=== PATIENT | female | born 1935 | race Caucasian/White ===

== ENCOUNTER 2017-01-27 11:59 | Inpatient (IN) | payer MEDICARE, OTHER ==
[~2017-01-27] VITALS: Ht 157.5 cm; Wt 75.0 kg
[2017-01-27] VITALS (10 sets, daily range): BP systolic 178–225; BP diastolic 86–116; PULSE 71–112; RESP 14–16; O2SAT 92–99
[~2017-01-27 11:59] MED LIST: ALBU18HF INH; ASPI-973 PO; AZEL205. NS; CITA20TA11 PO; FLUT1DIS5 IH; FLUT50DI IH; FLUT9.9S NS; HYDR25TA4 PO; LATA2.5D6 OP; LISI-567 PO; MOME17SP NS; OMEP20CA11 PO; PRED5TAB55 PO
[2017-01-27] MEDS: Ondansetron 2 mg/mL 2 mL Inj IVPUSH PRN ×2 (12:52→19:21)
[2017-01-27] MEDS: HYDROmorphone 0.5 mg/0.5 mL iSecure Syringe IVPUSH PRN ×4 (12:56→14:41)
[2017-01-27 12:58] LABS: BASOPHILS % (AUTO) 0.1 % (0-3); EOSINOPHILS % (AUTO) 0.5 % (0-5); MONOCYTES % (AUTO) 8.4 % (4-12); Mean Corpuscular Hemoglobin 29.9 pg (27.0-35.0); Mean Corpuscular Volume 91.8 fL (81-100); NEUTROPHILS % (AUTO) 68.9 % (40-74); Platelet Count 179 bil/L (150-400)
[2017-01-27 13:25] LABS: Magnesium 1.7 mg/dL (1.6-2.6)
--- NOTE | 2017-01-27 13:50 | ED.REPORT ---
HPI-Headache Date of Service Jan 27, 2017 ED Provider: Deepa Olmedo MD The pt is a 81 y/o female w/ a hx of osteoporosis, HTN, glaucoma, COPD, asthma , and peripheral neuropathy presenting to the ED complaining of a headache onset 4 days ago. She describes the headache being localized to the frontal region, severe, that gets worse during the day and she has used topical cannabis cream which provided mild relief. She also reports neck and shoulder pain, as well as pain above her teeth. Denies vision changes or focal weakness. The pot reports taking prednisone because she thought it was a sinus infection originally. Nursing Notes Stated Complaint: HEADACHE Chief Complaint: Headache Nursing Notes Reviewed: Yes Allergies: Coded Allergies: No Known Allergies (Verified , 01/01/16) Scheduled Aspirin (Aspirin) 81 Mg Tablet 81 MG PO DAILY Azelastine HCl (Astepro) 205.5 Mcg/0.137 Ml [place].pump 205.5 MCG NS BID Citalopram (Citalopram) 20 Mg Tablet 0.5 TAB PO DAILY Fluticasone Propionate (Flonase Allergy Relief) 50 Mcg/Actuation [place].susp 9.9 ML NS DAILY Fluticasone Propionate (Flovent Diskus) 50 Mcg Disk.w.dev 1 PUFF IH BID Fluticasone/Salmeterol (Advair 500-50 Diskus) 1 Each Disk.w.dev 2 PUFF IH BID Hydrochlorothiazide (Hydrochlorothiazide) 25 Mg Tablet 25 MG PO DAILY Latanoprost (Latanoprost) 2.5 Ml Drops 1 GTT OP HS Lisinopril (Lisinopril) 20 Mg Tablet 20 MG PO DAILY Mometasone Furoate (Nasonex) 17 Gm [place].pump 1 SPRAY NS DAILY Omeprazole (Omeprazole) 20 Mg Capsule.dr 20 MG PO DAILY Scheduled PRN Albuterol Sulfate (Ventolin HFA Inhaler) 200 Puff/18 Gm Inhaler 2 PUFF INH Q4- 6H PRN PRN For Wheezing Prednisolone (Millipred) 5 Mg Tablet 5 MG PO PRN asthma General Time Seen by MD: 12:12 Chief Complaint Headache Hx Obtained From: Patient Arrived By: Walk-in Sudden in Onset?: Yes Onset Occurred: 4 days ago Symptom Duration: Since onset Recent Healthcare: No recent hospitalization, Recent doctor visit Past Medical History Past Medical History chronic back pain sciatica Osteoporosis Glaucoma COPD Peripheral neuropathy Reports: Asthma, Hypertension Past Surgical History right knee replacement tonsillectomy gallbladder partial hysterectomy Smoking History Former Smoker Social History Alcohol Use: "Social" Drug Use: Denies drug use Other Social History: Good social support, Ambulatory Status Independent Review of Systems Pain "above teeth"; Denies vision changes; Musculoskeletal: Reports: Neck pain (that radiates to shoulders ) Neurologic: Reports: Headache, Denies: Focal weakness Complete sys rev & neg: except as marked. Physical Exam Initial Vital Signs Vital Signs (First) Date Time Temp Pulse Resp B/P Pulse Ox O2 Delivery O2 Flow Rate FiO2 01/27/17 12:03 37.2 101 16 225/116 99 Room Air Initial VS: Reviewed ENT: Mucous membranes moist, Conjunctiva normal, No scleral icterus Respiratory: Breath sounds normal, Clear to auscultation, No respiratory distress Cardiovascular: Regular rate & rhythm, Heart sounds normal, Intact distal pulses Extremities: Vascular intact, Neuro intact, No swelling, No tenderness Skin: Warm, Dry, No cyanosis Psychiatric: Mood/affect normal, Behavior normal, Normal thought content General/Constitutional: Awake, Alert Head / Eyes: Normocephalic, PERRL, EOMI no temporal artery pain noted Frontal and maxillary sinus tenderness Neck: Atraumatic, Supple, Full range of motion No cervical adenopathy Neurologic: Oriented X3, Speech NL Interpretation & Diagnostics Lab Results Interpretation Result Diagram: 01/27/17 1240 01/27/17 1240 Test 01/27/17 12:40 White Blood Count 8.2th/mm3 (3.8-10.1) Red Blood Count 4.85mil/mm3 (3.90-5.20) Hemoglobin 14.5g/dL (12.0-15.6) Hematocrit 44.5% (35.0-46.0) Mean Corpuscular Volume 91.8fL (81-100) Mean Corpuscular Hemoglobin 29.9pg (27.0-35.0) Mean Corpuscular Hemoglobin Concent 32.6% (32.0-37.0) Red Cell Distribution Width 14.9% (12.3-15.4) Platelet Count 179bil/L (150-400) Neutrophils (%) (Auto) 68.9% (40-74) Lymphocytes (%) (Auto) 21.9% (14-46) Monocytes (%) (Auto) 8.4% (4-12) Eosinophils (%) (Auto) 0.5% (0-5) Basophils (%) (Auto) 0.1% (0-3) Sodium Level 141mEq/L (134-144) Potassium Level 4.3mEq/L (3.5-5.2) Chloride Level 102mEq/L (97-108) Carbon Dioxide Level 23mmol/L (18-29) Blood Urea Nitrogen 18mg/dL (8-27) Creatinine 0.59mg/dL (0.57-1.00) Estimat Glomerular Filtration Rate 141mL/min (>59) Glucose Level 135mg/dL (60-99) Calcium Level 10.4mg/dL (8.5-10.1) Magnesium Level 1.7mg/dL (1.6-2.6) Total Bilirubin 2.3mg/dL (0.0-1.2) Aspartate Amino Transf (AST/SGOT) 21U/L (0-50) Alanine Aminotransferase (ALT/SGPT) 13U/L (0-32) Alkaline Phosphatase 54U/L (25-165) Total Protein 7.4g/dL (6.4-8.4) Albumin 4.5g/dL (3.4-5.0) Lipase 25U/L (13-60) CT Head Interpretation discussion with Dr Wilson. ? small subacute infarct R occipital. IMPRESSION: 1. Questionable focal decreased laguerre-white differentiation in the right occipital lobe. This finding may be associated with subacute or early chronic infarct. If further characterization assorted, noncontrast MRI may be helpful. 2. Mild findings likely associated with microvascular ischemic changes. These findings were discussed with Dr. Olmedo at 4:06 PM on 01/27/17. Dictated by: Nohemi Huntley M.D. on 01/27/2017 at 16:01 Study: Head CT no contrast Re-Eval/Medical Decision Med Decision/Clinical Course Severe headache no evidence of sinusitis. No suggestion of temporal arteritis but we will go ahead and add a sedimentation rate to labs. Minimal help with narcotics to control pain. Concern for small subacute infarct. Will benefit from a brain MRI discussed need for admission to facilitate workup and help with pain control. Diagnosis of stroke is not completely clear at this point. TPA is not medically indicated Source of Hx: Old records NIH Stroke Scale : NIHSS Score: 0 Time NIHSS Performed: 14:20 Date NIHSS Performed: Jan 27, 2017 Consultation : Consulted With: Hospitalist Call Returned at: 16:41 Dye Tank Tender: Will see patient, Agrees with plan Note: Dr Nagy Counseled Regarding: Diagnosis, Lab results, Need for follow-up, When/why to return to ED Discharge & Departure Impression: Primary Impression: Headache Additional Impression: Stroke Disposition: Home Discharge Condition All VS Reviewed: Yes Condition: Stable Referrals: Jovon Martínez MD (PCP) Scribe Attestation Portions of this note were transcribed by Seng Llamas. I, Dr. Olmedo personally performed the history, physical exam and medical decision-making; I reviewed and confirmed the accuracy of the information in the transcribed note. copies to: Jovon Martínez MD, Shawna L MD Jan 27, 2017 13:50 Seng Llamas Jan 27, 2017 14:21
--- NOTE | 2017-01-27 16:10 | DRSVH ---
PROCEDURE: CT BRAIN WITHOUT CONTRAST ([id number]) INDICATIONS: worst headache of life TECHNIQUE: Noncontrast 4.5 mm thick angled axial sections acquired from the foramen magnum to the vertex, with c oronal reformats. COMPARISON: None. FINDINGS: Image quality: Excellent. CSF spaces: Basal cisterns are patent. No extra-axial fluid collections. The ventricles are symmet aneudy in size and shape. Brain: No intracranial bleeds or masses. There is cerebral volume loss for age, with resultant vent ricular and sulcal prominence. There are periventricular and deep white matter chronic small vessel ischemic changes. There is questionable decreased laguerre/white differentiation within the lateral aspec t of the right occipital lobe (series 2, image 12 and series 4, image 35). There is intracranial inte rnal carotid artery atherosclerosis. Skull and face: Calvarium and visualized facial bones appear intact, without suspicious lesions. Sinuses: Visualized sinuses and mastoids are clear. IMPRESSION: 1. Questionable focal decreased laguerre-white differentiation in the right occipital lobe. This finding may be associated with subacute or early chronic infarct. If further characterization assorted, nonco ntrast MRI may be helpful. 2. Mild findings likely associated with microvascular ischemic changes. These findings were discussed with Dr. Olmedo at 4:06 PM on 01/27/17. Dictated by: Nohemi Huntley M.D. on 01/27/2017 at 16:01 Approved by: Nohemi Huntley M.D. on 01/27/2017 at 16:08
[2017-01-27] MEDS ORDERED: HYDROmorphone 0.5 mg/0.5 mL iSecure Syringe IVPUSH ONE (16:40)
[2017-01-27] MEDS ORDERED: Alum-Mag Hydrox-Simeth 30 mL Suspension PO PRN (16:50)
[2017-01-27] MEDS ORDERED: Polyethylene Glycol (PEG) 17 Gm Powder PO PRN (16:50)
--- NOTE | 2017-01-27 18:38 | DRSVH ---
PROCEDURE: MRI STROKE PROTOCOL ([id number]) Pre- and post-contrast brain MRI, non-contrast brain MR angiogram, pre- and postcontrast neck MR tessy ogram INDICATIONS: abnormal CT brain TECHNIQUE: Brain: Noncontrast axial T1 spin echo, axial T2 fast spin echo, sagittal and axial FLAIR, coronal T2 fast spin echo, axial gradient echo, axial diffusion and ADC through the brain. After the administr ation of contrast, axial 3D VIBE of the cranial vasculature and brain. Brain MRA: Non-contrast 3-D time of flight MR angiogram, with multiple tavcgfy-gizdmndiw-zlddogjwuz (MIP) reformats performed. Neck MRA: Axial and sagittal TruFISP through the neck. Coronal dynamic MR angiogram during administ ration of contrast in the arterial and venous phases, with 3-dimenstional ppelqtg-qqqddyxwh-uhegcbjxi n (MIP) reformats constructed from subtraction images. COMPARISON: None. FINDINGS: Image quality: Excellent. BRAIN: CSF spaces: Ventricles are normal in size and shape. Basal cisterns are patent. No extra-axial flu id collections. Brain: No intracranial bleeds or mass effects. Mahoney-white matter interface is normal. Diffusion we ighted images show no acute ischemic insults. Brainstem appears normal. Normal intravascular flow v oids are present. No abnormal intracranial enhancement. Skull and face: Calvarial marrow signal is normal. Orbits appear normal. Sinuses: Sinuses and mastoids are clear. BRAIN MR ANGIOGRAM: Anterior circulation: Intracranial internal carotid arteries are normal in size and enhancement. Th e flow within the paired anterior cerebral arteries is normal and symmetric. The flow within the mid dle cerebral arteries is normal and symmetric. The anterior communicating artery is seen. No stenos es, occlusions, or aneurysms. Posterior circulation: The visualized portions of the vertebral arteries demonstrate normal caliber, and join to form a normal appearing basilar artery. The flow within the posterior cerebral arteries is normal and symmetric. No stenoses, occlusions, or aneurysms. NECK MR ANGIOGRAM: Carotids: Great vessels demonstrate a conventional anatomy as they arise from the aortic arch. The origins of the common carotid arteries appear patent. The calibers and courses of both common caroti d arteries are normal. The bifurcation regions appear normal bilaterally. The internal carotid ramona abraham demonstrate normal course and caliber. Posterior circulation: The origins of the vertebral arteries appear patent. More superior portions of both vertebral arteries demonstrate normal course and caliber, and join to form a normal appearing basilar artery. Miscellaneous: Subclavian arteries appear patent. Pre-contrast images through the neck show no soft tissue abnormalities. IMPRESSION: BRAIN MRI: In the area of prior CT concern posterior right occipital area and no abnormality is foun d. BRAIN MR ANGIOGRAM: Normal intracranial MR angiogram. NECK MR ANGIOGRAM: The low cervical MR angiogram appears normal. Dictated by: Piotr Mayo M.D. on 01/27/2017 at 18:34 Approved by: Piotr Mayo M.D. on 01/27/2017 at 18:36
--- NOTE | 2017-01-27 18:54 | NUR ---
ARRIVAL Pt arrived from MRI from ED. Pt A/O. Denies SOB and chest pain. States NUNN 09/27. BP elevated 190s/90s. MD aware. Family present at bedside.
[2017-01-27] MEDS ORDERED: Albuterol 2.5 mg/3 mL Inhalation Solution NEB PRN (20:00)
[2017-01-27] MEDS ORDERED: PRD5T PO (20:00)
[2017-01-27] MEDS: Labetalol 5 mg/mL 4 mL Inj IVPUSH PRN (20:05)
[2017-01-27] MEDS: Fluticasone-Salmeterol 500-50 Inhaler INHALATION SCH (20:05)
[2017-01-27] MEDS: 0.9% Sodium Chloride 1,000 ML IV SCH (20:06)
[2017-01-27] MEDS ORDERED: AZELASTINE HCL 205.5 MCG NS SCH (20:30)
--- NOTE | 2017-01-27 20:42 | PCM.HPMED ---
Subjective Date of Service Jan 27, 2017 Primary Provider: Admitting Physician: Primary Care Physician: Jovon Martínez MD Attending Physician: Admit Status: From the Emergency Department, Admit to Blue Team Chief Complaint: Headache History of Present Illness: Mrs. Andres is a 81-year-old white female with past medical history of hypertension that is well controlled on medications, COPD, chronic back pain is presenting to the ER with complaints of worst headache of her life. She endorses no prior history of headaches or migraines. Pain onset was 4 days ago location is frontal at home apparently topical cannabis has provided some relief. At the time of this interview her headache is improved at 3 out of 10, still in the frontal area. She describes no vision problems no prior CVA or TIA history. She states that she did not take her medications this morning. She has received narcotics and Dilaudid IV in the ER that help her pain. She states that she has chronic phlegm from her COPD. She has chronic neck or shoulder pain. And she described this pain in the ER as well as some pain above the teeth. In the room currently she has no teeth pain she has no dizziness or shortness of breath is at baseline, she has no confusion. She has no chest pain, abdominal pain or GI symptoms. She denied nausea vomiting however when she tried to take some snack in the room she has started vomiting. She states that because she is very hungry and has not had anything to eat since this morning. Patient has had no fevers or chills recently and no recent infections. In the ER CT scan without contrast showed no subdural hemorrhage and no subarachnoid hemorrhage but showed concern for subacute right occipital infarct. Her lab is also fairly unremarkable. Patient was admitted to the blue team for stroke workup. Review of Systems: Complete review of systems performed, pertinent positives and negatives per history of present illness, all other systems reviewed and are negative. Allergies Uncoded Allergies: CATS (Allergy, Intermediate, ITCHING, 01/27/17) DUST MITES (Allergy, Intermediate, ITCHING, 01/27/17) Home Medications Medications include aspirin, azelastine, citalopram, Flonase, Advair, hydrochlorothiazide, latanoprost, lisinopril, Nasonex, labetalol, when necessary albuterol, when necessary prednisone PMH Remarkable for hypertension controlled, glaucoma, COPD/asked Sharron, peripheral neuropathy, chronic back pain due to sciatica, osteoporosis Surgical History Remarkable for right knee replacement, tonsillectomy, gallbladder surgery, partial hysterectomy Family History Father had had lung cancer, heart attack Mother had heart disease Social History Hx Alcohol Use: Yes ("SOCIAL") Hx Substance Use: No Smoking Status: Former Smoker Living Arrangement: with Family Exam Vital Signs Vital Sign - Last Date Time Temp Pulse Resp B/P Pulse Ox O2 Delivery O2 Flow Rate FiO2 01/27/17 14:42 86 14 189/92 94 Room Air 01/27/17 12:03 37.2 Exam General: No acute distress, elderly woman, appropriately interactive HEENT: Normocephalic, atraumatic. External ears without defect. Pupils equal, round, and reactive to light and accommodation. Anicteric sclerae, moist conjunctivae, and no lid lag. Oropharynx free of erythema and cobble stoning with moist mucosa. Neck: Supple with full range of motion. No jugular venous distension. No bruits. No lymphadenopathy or thyromegaly. Cardiovascular: Regular rate and rhythm with no murmurs, rubs, or gallops appreciated Pulmonary: Clear to auscultation bilaterally with no crackles, wheezes, or rhonchi. Normal respiratory effort with no use of accessory muscles. Abdomen: Bowel tones present. Soft, mildly tender diffusely, nondistended. No hepatosplenomegaly or masses appreciated. Extremities: No clubbing, cyanosis, edema, or lymphadenopathy appreciated. Skin: Normal temperature, turgor, and texture; no rash, ulcers, or subcutaneous nodules appreciated. Neurological: Cranial nerves grossly intact. Reduced muscle strength in the left upper extremity. Negative Romberg's, negative fingers to nose test. With draws to Babinski's. Cranial nerves and grossly normal. Gagging is deferred. 0/5 reflexes in patellar and Achilles tendon. Denies altered sensation in lower extremities Psychiatric: Normal mood and affect. Alert and oriented to person, place, and time. Lab and Diagnostics Result Diagram: 01/27/17 1240 01/27/17 1240 X-Rays, CTs and MRIs NDICATIONS: worst headache of life IMPRESSION: 1. Questionable focal decreased laguerre-white differentiation in the right occipital lobe. This finding may be associated with subacute or early chronic infarct. If further characterization assorted, noncontrast MRI may be helpful. 2. Mild findings likely associated with microvascular ischemic changes. These findings were discussed with Dr. Olmedo at 4:06 PM on 01/27/17. Dictated by: Nohemi Huntley M.D. on 01/27/2017 at 16:01 Approved by: Nohemi Huntley M.D. on 01/27/2017 at 16:08 Assessment & Plan This is a pleasant 81-year-old female with no previous CVA/TIA/migraine history presenting today to the ER with severe headache. Her blood pressures at control , however CT scan of head showed suspicion for stroke, she is admitted to the blue team for stroke workup. Concern for stroke/ subacute right occipital infarct, present on admission ongoing -- MR stroke protocol as ordered by the ER, patient has had the scan prior to arriving on the floor -- Permissive hypertension with labetalol when necessary with parameters -- PT/ST/OT -- Echocardiogram in the a.m. -- Neuro checks, elevate head of bed 30 -- Lipid panel is ordered, atorvastatin 10 mg daily at bedtime -- A1c is ordered -- Continue daily aspirin, if MRI confirmed stroke, they will switch her to Plavix Hypertensive urgency, present on admission active -- Patient has not taken her home medications lisinopril, hydrochlorothiazide. She is endorsing good control of her blood pressures prior to today. Patient could be having headaches, nausea vomiting secondary to uncontrolled type hypertension. -- We will hold all medications for today to allow for permissive hypertension, labetalol 10 mg IV is given upon arrival to floor -- Labetalol when necessary is ordered Headache, present on admission active improving -- Patient had relief with Dilaudid -- Tylenol 3 as ordered on the floor every 4 hours when necessary in the setting of suspicion for possible stroke, we would like to avoid IV pain medications if possible -- ESR is ordered and negative, she has no pain or temporal artery. The suspicion for temporal arteritis. -- Zofran for nausea, consider Benadryl/Reglan if stroke is ruled out Hypertension chronic uncontrolled -- Holding currently home antihypertensives as above -- Continue to monitor COPD chronic stable -- Patient has duplicate medications Flovent, Advair, Flonase, Nasonex -- Ordered Advair, Flonase Chronic depression stable -- Continue home medication citalopram Disposition Patient is admitted under Inpatient status with expected length of stay greater than 2 midnights due to severity of presenting symptoms, risk of adverse event, and complexity of treatment plan. CODE STATUS: CPR okay, no life support or intubation Alternate decision-maker daughter Yadira. [phone], [place] Pain Evaluation: Adequate Pain Control Resuscitation Status: CPR: Attempt Resuscitation (patient does not want life support or intubation) Time spent 45 minutes Christal Nagy DO Jan 27, 2017 16:44
[2017-01-27] MEDS: Codeine-APAP 30-300 mg Tablet PO PRN (22:39)
[2017-01-28] VITALS (14 sets, daily range): BP systolic 154–216; BP diastolic 74–100; PULSE 71–97; RESP 16–18; O2SAT 93–96
[2017-01-28] MEDS ORDERED: Heparin 5,000 Unit/mL Inj SUBQ SCH (00:30)
--- NOTE | 2017-01-28 02:39 | NUR ---
BLOOD PRESSURE Pt continuing to have mild headache at 4-5/10 with n/v producing watery green vomit. Per Dr. Nagy orders, gave 10 mg of labetalol for BP of 184/108. Recheck at 2103 was 178/89, within goal per labetalol parameters. Pt having some relief of NUNN with use of ice pack and tylenol/codeine. Pt has been sleeping on and off throughout night. Hourly rounding and frequent neuro checks.
[2017-01-28] MEDS: Codeine-APAP 30-300 mg Tablet PO PRN ×2 (03:58→21:25)
[2017-01-28] MEDS: 0.9% Sodium Chloride 1,000 ML IV SCH ×2 (04:49→12:50)
[2017-01-28] MEDS: Labetalol 5 mg/mL 4 mL Inj IVPUSH PRN (04:49)
[2017-01-28 06:11] LABS: BASOPHILS % (AUTO) 0.1 % (0-3); MONOCYTES % (AUTO) 11.8 % (4-12); Mean Corpuscular Hemoglobin 30.4 pg (27.0-35.0); Mean Corpuscular Volume 92.6 fL (81-100); NEUTROPHILS % (AUTO) 62.4 % (40-74); Platelet Count 167 bil/L (150-400)
[2017-01-28] MEDS ORDERED: Fluticasone 0.05% 15 Spray/2 Gm 16 Gm Nasal Spray NASAL SCH (08:30)
--- NOTE | 2017-01-28 09:30 | NUR ---
Evaluation completed. Please go to "Notes" then click on "Assessments and Notes" (bottom left corner of screen). Then select appropriate discipline tab on top of screen.
[2017-01-28] MEDS: Pantoprazole 20 mg ER24 Tablet PO SCH (10:00)
[2017-01-28] MEDS: Fluticasone-Salmeterol 500-50 Inhaler INHALATION SCH ×2 (10:02→21:25)
--- NOTE | 2017-01-28 11:33 | DRSVH ---
[facility] [address] [place] [address] Echocardiogram Report Name: ALEKSANDER GIORDANO GStudy Date: 01/28/2017 Height: 62 in Hospital Exam Location: [facility] Weight: 165 lb Gender: Female BSA: 1.8 m2 : 1935 Age: 81 yrs BP: 174/96 mmHg Reason For Study: Severe headache, rule out stroke Ordering Physician: Dr. Franck Martínez Performed By: Mary Brian Referring Physician: HOSPITALIST [facility] Interpretation Summary Normal left ventricle size with ejection fraction 60-65%. Grade I diastolic dysfunction. Severely dilated left atrium. Moderately dilated right atrium. Mild aortic valve sclerosis. Mild mitral annular calcification. Mild mitral regurgitation. Mild tricuspid regurgitation. The right ventricular systolic pressure is estimated at 53 mmHg assuming a right atrial pressure of 15 mm Hg. Moderate pulmonary hypertension. Possible small PFO noted in subcostal veiws. Procedure: A two-dimensional transthoracic echocardiogram with color flow and Doppler was performed. The study quality was technically good. There is no prior echocardiogram noted for this patient. The patient was in normal sinus rhythm during the exam. Left Ventricle: The left ventricle is normal in size. There is normal left ventricular wall thickness. Left ventricular systolic function is normal. The ejection fraction is estimated to be 60-65%. There are no focal wall motion abnormalities. Assessment of diastolic parameters indicates a relaxation abnormality of the left ventricle, consistent with normal filling pressures. Right Ventricle: The right ventricle is normal in size and function. Atria: The left atrium is severely dilated. The right atrium is moderately dilated. Possible small PFO noted in subcostal veiws. Mitral Valve: The mitral valve leaflets appear mildly thickened, but open well. There is mild mitral annular calcification. There is mild mitral regurgitation. Aortic Valve: There is mild aortic valve sclerosis. There is no aortic valve stenosis. There is trace aortic regurgitation. Tricuspid Valve: The tricuspid valve is normal in structure and function. There is mild tricuspid regurgitation. The right ventricular systolic pressure is estimated at 53 mmHg assuming a right atrial pressure of 15 mm Hg. There is moderate pulmonary hypertension. Pulmonic Valve: The pulmonic valve is normal in structure and function. There is trace pulmonic regurgitation. Great Vessels: The aortic root is normal size. The dimensions of the ascending aorta are normal. The pulmonary artery is normal size. The IVC is dilated (diameter is greater than 2.1 cm) and it collapses less than 50% with a sniff. This suggests a high right atrial pressure of 15 mm Hg. Pericardium/ Pleura There is no pericardial effusion. There is no pleural effusion. MMode/2D Measurements & Calculations LVIDd: 5.0 cm LA A2 area RA long axis LVOT diam: 2.2 cm LVIDs: 2.9 cm AoV Openin.9 cm FS: 42.2 % RA area Ao root diam: 3.1 cm EPSS: 0.66 cm LA A4 area asc Aorta Diam: 3.3 cm IVSd: 1.1 cm : 16.9 cm LVPWd: 1.1 cm LA length (vol) RA vol : 44.3 ml LA vol: 98.5 ml RA LA vol index : 25.1 mm2 IVC diam: 2.9 cm LVAd ap4: 26.4 cm LVAd ap2 LV marino. diameter/BSA LVAs ap4: 16.7 cm : 25.0 cm EF(MOD-bp) (cm/m^2): 2.9 LVLs ap4: 6.4 cm LVLd ap2: 7.3 cm: 56.0 % EDV(MOD-sp2) EDV(sp2-el) LVAs ap2 : 14.8 cm LVLs ap2: 6.4 cm ESV(MOD-sp2) ESV(sp2-el) EF(MOD-sp2) LV sys. diameter/BSA TAPSE: 2.5 cm (cm/m^2): 1.7 Doppler Measurements & Calculations Ao V2 max MV E max erlin MV E/A: 0.69 TR max erlin : 153.2 cm/sec : 93.4 cm/sec Med Peak E' Erlin : 310.2 cm/sec Ao max P.4 mmHg MV A max erlin TR max PG Ao mean P.7 mmHg : 135.9 cm/sec E/E' med: 18.0 : 38.5 mmHg LVOT Max Erlin Lat Peak E' Erlin PA V2 max : 99.0 cm/sec : 74.9 cm/sec AIDE(I,D): 2.6 cm E/E' lat: 12.3 PA mean PG sev ratio: 0.65 E/e' average : 1.4 mmHg Pulm A Revs Erlin : 35.3 cm/sec MV dec time: 0.18 sec Ao V2 mean LV V1 max PG PA V2 mean : 102.3 cm/sec : 56.1 cm/sec Ao V2 VTI: 34.8 cm LV V1 VTI: 22.7 cmPA pr(Accel) AIDE(V,D): 2.5 cm2 : 34.6 mmHg AIDE indexed to BSA (cm^2/m^2): 1.5 Electronically signed by: Jorge Villanueva on Reading Physician:01/28/2017 11:32 AM
--- NOTE | 2017-01-28 12:17 | NUR ---
Case Management: JG delivered and explained to pt. and spouse at bedside. Signed original placed in chart. Copy left at bedside. Akiko Rojas RN
--- NOTE | 2017-01-28 17:09 | NUR ---
Social Work: Initial Assessment Data: Pt is a 81 y/o female admitted for R/O stroke, sever headache. Pt's PCP is Dr Martínez, pt's insurance is Medicare with [employer]. EMR reviewed. Pt discussed in multidisciplinary rounds. MD states pt likely to d/c in 1-2 days. INTELLIGENCE OFFICER met with pt and family at bedside, role explained. Pt states that she lives in [place] with her and daughter in a single story home where she uses no DME but owns a walker and a cane. Pt states she drives, has no hx of HH or SNF, no LTC or VA benefits, and is not a caregiver. PT recommending outpt PT for pt at d/c. No d/c planning needs anticipated at this time. INTELLIGENCE OFFICER will continue to follow if needs arise. Assessment: Pt who is independent at baseline. Currently capable of self care. Plan: Pt will d/c home via POV with family when medically stable. No d/c planning needs anticipated at this time. INTELLIGENCE OFFICER will continue to follow if needs arise. TEJINDER Lai Addendum: 01/28/17 at 1712 by VIN REAL Amended: Links added.
--- NOTE | 2017-01-28 17:14 | NUR ---
MRI negative. Tolerating diet. MOTOR EQUIPMENT COMMANDING OFFICER evaluation canceled. Spoke with patient and RN.
--- NOTE | 2017-01-28 17:51 | NUR ---
Hypertension: Patient has had hypertension today. Her B/P was 185/95 and she was given Lisinopril x1 with no effect. And she was given Amlodipine this evening (will recheck the B/P later to evaluate the effect). Per MD patient is Negative for a stroke. Will continue to monitor patients B/P and follow MD orders accordingly to achieve better B/P control.
[2017-01-28] MEDS: Fluticasone 0.05% 15 Spray/2 Gm 16 Gm Nasal Spray NASAL SCH (21:25)
[2017-01-28] MEDS ORDERED: Magnesium Sulf 2 Gm/50mL Water 2 GM in IV Premix 1 EACH IV ONE (21:40)
--- NOTE | 2017-01-28 22:25 | PCM.PNMED ---
Subjective Date of Service Jan 28, 2017 Subjective Patient is seen and examined.Discussed diagnosis, workup, imaging, and treatment plan with patient and family. They expressed an verbalized their understanding. Patient states that her headaches have improved stimulating Tylenol today. Nausea and vomiting have resolved as her blood pressures improved. Exam Vital Signs Vital Sign - Last Date Time Temp Pulse Resp B/P Pulse Ox O2 Delivery O2 Flow Rate FiO2 01/28/17 06:06 174/96 01/28/17 05:20 71 01/28/17 04:21 36.7 16 96 Room Air Intake and Output 01/27/17 01/27/17 01/28/17 Cumulative From/Thru 15:00 23:00 07:00 01/27/17 12:03 - 01/28/17 06:57 Intake Total 1293 ml 1293 ml Output Total 425 ml 425 ml Balance 868 ml 868 ml Intake Oral 200 ml 200 ml IV Total 1093 ml 1093 ml Output Urine Total 425 ml 425 ml # Voids 3 3 Exam General: No acute distress, elderly woman, appropriately interactive HEENT: Normocephalic, atraumatic. Neck: Supple with full range of motion. No jugular venous distension. No bruits. No lymphadenopathy or thyromegaly. Cardiovascular: Regular rate and rhythm with no murmurs, rubs, or gallops appreciated Pulmonary: Clear to auscultation bilaterally with no crackles, wheezes, or rhonchi. Normal respiratory effort with no use of accessory muscles. Abdomen: Bowel tones present. Soft, mildly tender diffusely, nondistended. No hepatosplenomegaly or masses appreciated. Skin: Normal temperature, Neurological: No focal deficits Psychiatric: Normal mood and affect. Alert and oriented to person, place, and time. IVs and Medications Medications Reviewed: Medications were reviewed in detail Lab and Diagnostics Result Diagram: 01/28/17 0555 01/28/17 0555 X-Rays, CTs and MRIs NDICATIONS: worst headache of life IMPRESSION: 1. Questionable focal decreased laguerre-white differentiation in the right occipital lobe. This finding may be associated with subacute or early chronic infarct. If further characterization assorted, noncontrast MRI may be helpful. 2. Mild findings likely associated with microvascular ischemic changes. These findings were discussed with Dr. Olmedo at 4:06 PM on 01/27/17. Dictated by: Nohemi Huntley M.D. on 01/27/2017 at 16:01 Approved by: Nohemi Huntley M.D. on 01/27/2017 at 16:08 ---- PROCEDURE: MRI STROKE PROTOCOL ([id number]) Pre- and post-contrast brain MRI, non-contrast brain MR angiogram, pre- and postcontrast neck MR angiogram INDICATIONS: abnormal CT brain IMPRESSION: BRAIN MRI: In the area of prior CT concern posterior right occipital area and no abnormality is found. BRAIN MR ANGIOGRAM: Normal intracranial MR angiogram. NECK MR ANGIOGRAM: The low cervical MR angiogram appears normal. Dictated by: Piotr Mayo M.D. on 01/27/2017 at 18:34 Approved by: Piotr Mayo M.D. on 01/27/2017 at 18:36 Cardiac Echo Impressions Interpretation Summary Normal left ventricle size with ejection fraction 60-65%. Grade I diastolic dysfunction. Severely dilated left atrium. Moderately dilated right atrium. Mild aortic valve sclerosis. Mild mitral annular calcification. Mild mitral regurgitation. Mild tricuspid regurgitation. The right ventricular systolic pressure is estimated at 53 mmHg assuming a right atrial pressure of 15 mm Hg. Moderate pulmonary hypertension. Possible small PFO noted in subcostal veiws. Assessment & Plan This is a pleasant 81-year-old female with no previous CVA/TIA/migraine history presenting today to the ER with severe headache. Her blood pressures at control , however CT scan of head showed suspicion for stroke, she is admitted to the blue team for stroke workup. Concern for stroke/ subacute right occipital infarct, present on admission ongoing -- MR stroke protocol as ordered by the ER, patient has had the scan prior to arriving on the floor: Negative for acute stroke -- PT/ST/OT -- Echocardiogram in the a.m. showed concern for PFO, severely dilated left atrium, moderately dilated right atrium, diastolic grade 1 dysfunction -- Neuro checks, elevate head of bed 30 -- Lipid panel is ordered, atorvastatin 10 mg daily at bedtime -- A1c 5.6, nondiabetic -- We will plan for a cardiology outpatient visit/referral ziopatch/Holter monitor to monitor for atrial fibrillation Patent foramen ovale, as seen on echocardiogram -- She does have an increased risk for stroke due to suspicion for atrial fibrillation and PFO -- The late outpatient cardiology referral for consideration for KAYE Hypertensive urgency, present on admission improving -- Patient has not taken her home medications lisinopril, hydrochlorothiazide. She is endorsing good control of her blood pressures prior to today. Patient could be having headaches, nausea vomiting secondary to uncontrolled type hypertension. -- Currently patient is on lisinopril 40 mg, hydrochlorothiazide, amlodipine 5 mg Headache, present on admission active improving -- Patient is improving with improved blood pressure control -- Tylenol 3 as ordered on the floor every 4 hours when necessary -- ESR is ordered and negative, she has no pain or temporal artery. Low suspicion for temporal arteritis. -- Zofran for nausea, consider Benadryl/Reglan if stroke is ruled out -- Magnesium levels ordered, noted 1.4. Repleted with 2 g IV mag Hypomagnesemia, active -- Repleted with 2 g magnesium -- Continue to monitor Hypertension chronic uncontrolled -- Current management as above -- Continue to monitor COPD chronic stable -- Patient has duplicate medications Flovent, Advair, Flonase, Nasonex -- Ordered Advair, Flonase Chronic depression stable -- Continue home medication citalopram Disposition Patient is admitted under Inpatient status with expected length of stay greater than 2 midnights due to severity of presenting symptoms, risk of adverse event, and complexity of treatment plan. CODE STATUS: CPR okay, no life support or intubation Alternate decision-maker daughter Yadira. [phone], [place] Pain Evaluation: Adequate Pain Control Resuscitation Status: CPR: Attempt Resuscitation (patient does not want life support or intubation) Time spent 25 minutes Christal Nagy DO Jan 28, 2017 07:37
[2017-01-29] VITALS (8 sets, daily range): BP systolic 132–194; BP diastolic 73–113; PULSE 85–102; RESP 16–20; O2SAT 94–96
--- NOTE | 2017-01-29 04:53 | NUR ---
BP/Mg Repeat BP was 160s-170s/70s and c/o 4/10 headache. Tylenol with codeine given with minimal relief. Mag rider was given per order. Ibuprofen given before bedtime to help with her headache. BP went down to 138/73 and able to sleep most of the night. Daughter, Es at bedside. hourly rounding done.
[2017-01-29] MEDS: Fluticasone-Salmeterol 500-50 Inhaler INHALATION SCH ×2 (08:25→19:48)
[2017-01-29] MEDS ORDERED: AMLO5TAB2 PO (08:25)
[2017-01-29] MEDS: Pantoprazole 20 mg ER24 Tablet PO SCH (08:26)
[2017-01-29] MEDS ORDERED: LISI-567 PO (08:27)
[2017-01-29] MEDS ORDERED: ATOR10TA66 PO (08:28)
[2017-01-29] MEDS ORDERED: PRAV10TA2 PO (08:29)
--- NOTE | 2017-01-29 16:46 | NUR ---
Social Work: Discharge/Multidisciplinary Rounds D: EMR reviewed. Pt is on day 2 of hospitalization. Pt discussed in multidisciplinary rounds. Per MD, pt is medically stable for discharge home today via POV - no SW needs, no MD orders received. Pt to follow PT recommendations for outpt PT - RN to go over at time of discharge. No SW need identified. A: Pt who is independent at baseline. Currently capable of self care. P: Pt to discharge home with family today via POV. No discharge planning needs identified - no MD orders received. No concerns for pt's discharge identified. TEJINDER Estrada
[2017-01-29] MEDS: Fluticasone 0.05% 15 Spray/2 Gm 16 Gm Nasal Spray NASAL SCH (19:49)
[2017-01-29] MEDS: guaiFENesin 600 mg ER12 Tablet PO SCH (19:51)
[2017-01-29] MEDS ORDERED: Labetalol 5 mg/mL 20 mL Inj IVPUSH PRN (20:50)
--- NOTE | 2017-01-29 21:07 | PCM.PNMED ---
Subjective Date of Service Jan 29, 2017 Subjective Blood Pressures were better overnight on HCTZ 25, amlodipine 5 mg and Lisinopril 20 mg PO BID. Patient states her headaches are much improved, nausea has resolved. No chest pain or dyspnea. Exam Vital Signs Vital Sign - Last Date Time Temp Pulse Resp B/P Pulse Ox O2 Delivery O2 Flow Rate FiO2 01/29/17 15:14 89 20 181/102 01/29/17 08:26 36.4 95 Room Air Intake and Output 01/28/17 01/28/17 01/29/17 Cumulative From/Thru 15:00 23:00 07:00 01/27/17 12:03 - 01/29/17 05:58 Intake Total 636 ml 400 ml 2329 ml Output Total 425 ml Balance 636 ml 400 ml 1904 ml Intake Oral 636 ml 400 ml 1236 ml IV Total 1093 ml Output Urine Total 425 ml # Voids 5 2 10 Exam General: No acute distress, elderly woman, appropriately interactive HEENT: Normocephalic, atraumatic. Neck: Supple with full range of motion. No jugular venous distension. No bruits. No lymphadenopathy or thyromegaly. Cardiovascular: Regular rate and rhythm with no murmurs, rubs, or gallops appreciated Pulmonary: Clear to auscultation bilaterally with no crackles, wheezes, or rhonchi. Normal respiratory effort with no use of accessory muscles. Abdomen: Bowel tones present. Soft, mildly tender diffusely, nondistended. No hepatosplenomegaly or masses appreciated. Skin: Normal temperature, Neurological: No focal deficits Psychiatric: Normal mood and affect. Alert and oriented to person, place, and time. IVs and Medications Medications Reviewed: Medications were reviewed in detail Lab and Diagnostics Result Diagram: 01/28/17 0555 01/28/17 0555 X-Rays, CTs and MRIs NDICATIONS: worst headache of life IMPRESSION: 1. Questionable focal decreased laguerre-white differentiation in the right occipital lobe. This finding may be associated with subacute or early chronic infarct. If further characterization assorted, noncontrast MRI may be helpful. 2. Mild findings likely associated with microvascular ischemic changes. These findings were discussed with Dr. Olmedo at 4:06 PM on 01/27/17. Dictated by: Nohemi Huntley M.D. on 01/27/2017 at 16:01 Approved by: Nohemi Huntley M.D. on 01/27/2017 at 16:08 ---- PROCEDURE: MRI STROKE PROTOCOL ([id number]) Pre- and post-contrast brain MRI, non-contrast brain MR angiogram, pre- and postcontrast neck MR angiogram INDICATIONS: abnormal CT brain IMPRESSION: BRAIN MRI: In the area of prior CT concern posterior right occipital area and no abnormality is found. BRAIN MR ANGIOGRAM: Normal intracranial MR angiogram. NECK MR ANGIOGRAM: The low cervical MR angiogram appears normal. Dictated by: Pitor Mayo M.D. on 01/27/2017 at 18:34 Approved by: Piotr Mayo M.D. on 01/27/2017 at 18:36 Cardiac Echo Impressions Interpretation Summary Normal left ventricle size with ejection fraction 60-65%. Grade I diastolic dysfunction. Severely dilated left atrium. Moderately dilated right atrium. Mild aortic valve sclerosis. Mild mitral annular calcification. Mild mitral regurgitation. Mild tricuspid regurgitation. The right ventricular systolic pressure is estimated at 53 mmHg assuming a right atrial pressure of 15 mm Hg. Moderate pulmonary hypertension. Possible small PFO noted in subcostal veiws. Assessment & Plan This is a pleasant 81-year-old female with no previous CVA/TIA/migraine history presenting today to the ER with severe headache. Her blood pressures at control , however CT scan of head showed suspicion for stroke, she is admitted to the blue team for stroke workup. Hypertensive urgency, present on admission improving -- Patient has not taken her home medications lisinopril, hydrochlorothiazide. She is endorsing good control of her blood pressures prior to today. Patient could be having headaches, nausea vomiting secondary to uncontrolled type hypertension. -- Overnight she had better BP control but later in the day BP started climbing again. Gave an additional amlodipine 5 mg -- Currently patient is on lisinopril 20 mg BID, hydrochlorothiazide, amlodipine 10 mg -- Labetalol 20 mg Q6H PRN with parameters SBP>=180 or DBP>=100, hold if HR<65, call MD -- Will add beta bruno in the AM if BP do not improve or pt needed overnight labetalol. -- At this point she is considered resistant HTN. Concern for stroke/ subacute right occipital infarct, present on admission ongoing -- MR stroke protocol as ordered by the ER, patient has had the scan prior to arriving on the floor: Negative for acute stroke -- PT/ST/OT -- Echocardiogram in the a.m. showed concern for PFO, severely dilated left atrium, moderately dilated right atrium, diastolic grade 1 dysfunction -- Neuro checks, elevate head of bed 30 -- Lipid panel is ordered, atorvastatin 10 mg daily at bedtime -- A1c 5.6, nondiabetic -- We will plan for a cardiology outpatient visit/referral ziopatch/Holter monitor to monitor for atrial fibrillation Patent foramen ovale, as seen on echocardiogram -- She does have an increased risk for stroke due to suspicion for atrial fibrillation and PFO -- The late outpatient cardiology referral for consideration for KAYE Headache, present on admission resolved -- Patient is improving with improved blood pressure control -- Tylenol 3 as ordered on the floor every 4 hours when necessary -- ESR is ordered and negative, she has no pain or temporal artery. Low suspicion for temporal arteritis. -- Zofran for nausea, consider Benadryl/Reglan if stroke is ruled out -- Magnesium levels ordered, noted 1.4. Repleted with 2 g IV mag Hypomagnesemia, resolved -- Repleted with 2 g magnesium -- Continue to monitor Hypertension chronic uncontrolled -- Current management as above -- Continue to monitor COPD chronic stable -- Patient has duplicate medications Flovent, Advair, Flonase, Nasonex -- Ordered Advair, Flonase Chronic depression stable -- Continue home medication citalopram Disposition Patient is admitted under Inpatient status with expected length of stay greater than 2 midnights due to severity of presenting symptoms, risk of adverse event, and complexity of treatment plan. CODE STATUS: CPR okay, no life support or intubation Alternate decision-maker daughter Yadira. [phone], [place] Pain Evaluation: Adequate Pain Control Resuscitation Status: CPR: Attempt Resuscitation (patient does not want life support or intubation) Time spent 30 min Christal Nagy DO Jan 29, 2017 16:13
--- NOTE | 2017-01-29 21:51 | NUR ---
Hypertension: Patient continues to have hypertension today. She recieved her usual doses of B/P meds and extra doses as ordered by the MD. Her B/P has been 175/79 and 182/102. Patient was not D/Cd home due to her hypertension. Her Lisinopril and her amlodipine dosing have been increased accordingly by the MD. Patients B/P will continue to be monitored and Meds given as ordered .
[2017-01-30] VITALS (13 sets, daily range): BP systolic 137–196; BP diastolic 64–94; PULSE 68–112; RESP 18–22; O2SAT 94–96
[2017-01-30] MEDS: Codeine-APAP 30-300 mg Tablet PO PRN (06:46)
--- NOTE | 2017-01-30 06:49 | NUR ---
Orthostatic BP Pt's BP this AM remained elevated. Manual BP was 154/92. has minimal 2/10 headache. tylenol with codeine given. This RN did ortho BP. BP lying down was 196/94 HR 94; BP standing was 137/88 HR 112. still no c/o dizziness or lightheadedness. Info passed onto day RN.
[2017-01-30] MEDS: guaiFENesin 600 mg ER12 Tablet PO SCH ×2 (08:30→20:30)
[2017-01-30] MEDS: Fluticasone-Salmeterol 500-50 Inhaler INHALATION SCH ×2 (09:29→20:30)
[2017-01-30] MEDS: Pantoprazole 20 mg ER24 Tablet PO SCH (09:29)
[2017-01-30] MEDS ORDERED: AMLO5TAB2 PO (16:03)
[2017-01-30] MEDS ORDERED: METO25TA6 PO (16:04)
--- NOTE | 2017-01-30 16:08 | PCM.DIMED ---
Discharge Instructions Date of Service Jan 30, 2017 Dates of Hospitalization Jan 27, 2017 at 17:15 Discharge Diagnosis Discharge Diagnosis Hypertensive Urgency, PFO, COPD Medication Instructions Additional med instructions Patient was treated with HCTZ 25 mg QD, Lisinopril 20 mg Po BID, Metoprolol 12.5 mg BID PO and Amlodipine 10 mg PO QD to get her HTN under control until the evening of 01/30/17 at the time of her headache onset, all PO meds were stopped. Over night she has received a 2g magnesium infusion, haldol. On the AM of 01/31 she received 1 g of IV depakote, and she underwent sedation protocol by our anesthesia team. Patient was to d/c home on Atorvastatin 10 mg QHS. She will be transferred on a DVT/PE protocol heparin drip with PTT goal of < 51. IVF at 100 cc/hr NSS Zofran IV 4 mg Q4H PRN Labetalol 20 mg IV Q6H PRN for SBP>=170 or DBP>=95 Diet Discharge Diet: Other (npo) Patient Instructions Patient Instructions Christal Nagy DO Jan 30, 2017 16:08 Christal Nagy DO Jan 30, 2017 16:08 Christal Nagy DO Jan 30, 2017 16:08
--- NOTE | 2017-01-30 16:57 | DRSVH ---
PROCEDURE: CT BRAIN WITHOUT CONTRAST ([id number]) INDICATIONS: 81 year-old female with severe headaches. TECHNIQUE: Noncontrast 4.5 mm thick angled axial sections acquired from the foramen magnum to the vertex, with c oronal reformats. COMPARISON: [facility], CT, CT BRAIN WO CON, 01/27/2017, 14:10. FINDINGS: Image quality: Excellent. CSF spaces: Basal cisterns are patent. No extra-axial fluid collections. Ventricles are normal in size and shape. Brain: No midline shift. No intracranial masses or hemorrhage. Mahoney-white matter interface is norm al. There is intracranial internal carotid artery atherosclerosis. Skull and face: Calvarium and visualized facial bones are intact, without suspicious lesions. Sinuses: Dependent fluid within the left sphenoid sinus is again noted. Other visualized sinuses and mastoids appear clear. IMPRESSION: 1. No acute intracranial abnormalities. 2. Persistent dependent fluid within the left sphenoid sinus, suggesting sinusitis. Dictated by: Farrukh Aquino M.D. on 01/30/2017 at 16:52 Approved by: Farrukh Aquino M.D. on 01/30/2017 at 16:55
[2017-01-30 18:55] LABS: INR 0.96 ratio
[2017-01-30 19:00] LABS: TROPONIN T < 0.010 ug/L (0.0-0.011)
[2017-01-30 19:01] LABS: BASOPHILS % (AUTO) 0.2 % (0-3); EOSINOPHILS % (AUTO) 1.3 % (0-5); NEUTROPHILS % (AUTO) 56.5 % (40-74); Platelet Count 229 bil/L (150-400)
[2017-01-30 19:12] LABS: Creatine Kinase 44 U/L (21-215)
--- NOTE | 2017-01-30 19:42 | PCM.DC.MED ---
Discharge Summary Date of Service Jan 30, 2017 Dates of Hospitalization Date of Hospital Admission Jan 27, 2017 at 17:15 Providers: Admitting Physician: Christal Nagy DO Primary Care Physician: Jovon Martínez MD Attending Physician: Christal Nagy DO Diagnosis at Time of Discharge Diagnosis at Time of Discharge Hypertensive Urgency, PFO, COPD Procedures XRay, CTs & MRIs NDICATIONS: worst headache of life IMPRESSION: 1. Questionable focal decreased laguerre-white differentiation in the right occipital lobe. This finding may be associated with subacute or early chronic infarct. If further characterization assorted, noncontrast MRI may be helpful. 2. Mild findings likely associated with microvascular ischemic changes. These findings were discussed with Dr. Olmedo at 4:06 PM on 01/27/17. Dictated by: Nohemi Huntley M.D. on 01/27/2017 at 16:01 Approved by: Nohemi Huntley M.D. on 01/27/2017 at 16:08 ---- PROCEDURE: MRI STROKE PROTOCOL ([id number]) Pre- and post-contrast brain MRI, non-contrast brain MR angiogram, pre- and postcontrast neck MR angiogram INDICATIONS: abnormal CT brain IMPRESSION: BRAIN MRI: In the area of prior CT concern posterior right occipital area and no abnormality is found. BRAIN MR ANGIOGRAM: Normal intracranial MR angiogram. NECK MR ANGIOGRAM: The low cervical MR angiogram appears normal. Dictated by: Piotr Mayo M.D. on 01/27/2017 at 18:34 Approved by: Piotr Mayo M.D. on 01/27/2017 at 18:36 Cardiac Echo Impression Interpretation Summary Normal left ventricle size with ejection fraction 60-65%. Grade I diastolic dysfunction. Severely dilated left atrium. Moderately dilated right atrium. Mild aortic valve sclerosis. Mild mitral annular calcification. Mild mitral regurgitation. Mild tricuspid regurgitation. The right ventricular systolic pressure is estimated at 53 mmHg assuming a right atrial pressure of 15 mm Hg. Moderate pulmonary hypertension. Possible small PFO noted in subcostal veiws. Brief History Mrs. Andres is a 81-year-old white female with past medical history of hypertension that is well controlled on medications, COPD, chronic back pain is presenting to the ER with complaints of worst headache of her life. She endorses no prior history of headaches or migraines. Pain onset was 4 days ago location is frontal at home apparently topical cannabis has provided some relief. At the time of this interview her headache is improved at 3 out of 10, still in the frontal area. She describes no vision problems no prior CVA or TIA history. She states that she did not take her medications this morning. She has received narcotics and Dilaudid IV in the ER that help her pain. She states that she has chronic phlegm from her COPD. She has chronic neck or shoulder pain. And she described this pain in the ER as well as some pain above the teeth. In the room currently she has no teeth pain she has no dizziness or shortness of breath is at baseline, she has no confusion. She has no chest pain, abdominal pain or GI symptoms. She denied nausea vomiting however when she tried to take some snack in the room she has started vomiting. She states that because she is very hungry and has not had anything to eat since this morning. Patient has had no fevers or chills recently and no recent infections. In the ER CT scan without contrast showed no subdural hemorrhage and no subarachnoid hemorrhage but showed concern for subacute right occipital infarct. Her lab is also fairly unremarkable. Patient was admitted to the blue team for stroke workup. Hospital Course This is a pleasant 81-year-old female with no previous CVA/TIA/migraine history presenting today to the ER with severe headache. Her blood pressures at control , however CT scan of head showed suspicion for stroke, she is admitted to the blue team for stroke workup. Hypertensive urgency, present on admission improving -- Patient has not taken her home medications lisinopril, hydrochlorothiazide. She is endorsing good control of her blood pressures prior to today. Patient could be having headaches, nausea vomiting secondary to uncontrolled type hypertension. -- Overnight she had better BP control but later in the day BP started climbing again. Gave an additional amlodipine 5 mg -- Currently patient is on lisinopril 20 mg BID, hydrochlorothiazide, amlodipine 10 mg -- Labetalol 20 mg Q6H PRN with parameters SBP>=180 or DBP>=100, hold if HR<65, call MD -- Will add beta bruno in the AM if BP do not improve or pt needed overnight labetalol. -- At this point she is considered resistant HTN. Concern for stroke/ subacute right occipital infarct, present on admission ongoing -- MR stroke protocol as ordered by the ER, patient has had the scan prior to arriving on the floor: Negative for acute stroke -- PT/ST/OT -- Echocardiogram in the a.m. showed concern for PFO, severely dilated left atrium, moderately dilated right atrium, diastolic grade 1 dysfunction -- Neuro checks, elevate head of bed 30 -- Lipid panel is ordered, atorvastatin 10 mg daily at bedtime -- A1c 5.6, nondiabetic -- We will plan for a cardiology outpatient visit/referral ziopatch/Holter monitor to monitor for atrial fibrillation Patent foramen ovale, as seen on echocardiogram -- She does have an increased risk for stroke due to suspicion for atrial fibrillation and PFO -- The late outpatient cardiology referral for consideration for KAYE Headache, present on admission resolved -- Patient is improving with improved blood pressure control -- Tylenol 3 as ordered on the floor every 4 hours when necessary -- ESR is ordered and negative, she has no pain or temporal artery. Low suspicion for temporal arteritis. -- Zofran for nausea, consider Benadryl/Reglan if stroke is ruled out -- Magnesium levels ordered, noted 1.4. Repleted with 2 g IV mag Hypomagnesemia, resolved -- Repleted with 2 g magnesium -- Continue to monitor Hypertension chronic uncontrolled -- Current management as above -- Continue to monitor COPD chronic stable -- Patient has duplicate medications Flovent, Advair, Flonase, Nasonex -- Ordered Advair, Flonase Chronic depression stable -- Continue home medication citalopram Disposition Patient is admitted under Inpatient status with expected length of stay greater than 2 midnights due to severity of presenting symptoms, risk of adverse event, and complexity of treatment plan. CODE STATUS: CPR okay, no life support or intubation Alternate decision-maker daughter Yadira. [phone], [place] Exam Vital Signs (Last) Date Time Temp Pulse Resp B/P Pulse Ox O2 Delivery O2 Flow Rate FiO2 01/30/17 15:53 91 20 150/93 Room Air 01/30/17 13:03 36.8 94 Test 01/27/17 12:40 01/28/17 05:55 01/28/17 06:45 01/29/17 11:40 Erythrocyte Sedimentation Rate 1mm/hr (0-40) Hemoglobin A1c 5.6% (4.8-5.6) Lipase 25U/L (13-60) Triglycerides Level 74mg/dL (0-149) Cholesterol Level 182mg/dL (100-199) LDL Cholesterol, Calculated 79.200mg/dL (0-99) VLDL Cholesterol 14.800mg/dL HDL Cholesterol 88mg/dL (>39) Cholesterol/HDL Ratio 2.07 (0.0-4.4) Hold Urine Received (Received) Magnesium Level 1.8mg/dL (1.6-2.6) Test 01/30/17 11:40 01/30/17 18:03 01/30/17 18:41 01/30/17 18:58 Thyroid Stimulating Hormone (TSH) 1.740uIU/mL (0.450-4.500) Free Thyroxine 1.54ng/dL (0.82-1.77) Hold Ba Top Tube Received (Received) Prothrombin Time 10.3sec (8.1-12.5) Prothromb Time International Ratio 0.96ratio Sodium Level 138mEq/L (134-144) Potassium Level 4.5mEq/L (3.5-5.2) Chloride Level 97mEq/L (97-108) Carbon Dioxide Level 26mmol/L (18-29) Blood Urea Nitrogen 17mg/dL (8-27) Creatinine 0.85mg/dL (0.57-1.00) Estimat Glomerular Filtration Rate 92mL/min (>59) Glucose Level 122mg/dL (60-99) Calcium Level 10.9mg/dL (8.5-10.1) Total Bilirubin 2.1mg/dL (0.0-1.2) Aspartate Amino Transf (AST/SGOT) 16U/L (0-50) Alanine Aminotransferase (ALT/SGPT) 13U/L (0-32) Alkaline Phosphatase 60U/L (25-165) Total Creatine Kinase 44U/L (21-215) Troponin T < 0.010ug/L (0.0-0.011) Total Protein 7.3g/dL (6.4-8.4) Albumin 4.4g/dL (3.4-5.0) White Blood Count 11.6th/mm3 (3.8-10.1) Red Blood Count 5.34mil/mm3 (3.90-5.20) Hemoglobin 16.0g/dL (12.0-15.6) Hematocrit 47.5% (35.0-46.0) Mean Corpuscular Volume 89.0fL (81-100) Mean Corpuscular Hemoglobin 30.0pg (27.0-35.0) Mean Corpuscular Hemoglobin Concent 33.7% (32.0-37.0) Red Cell Distribution Width 14.9% (12.3-15.4) Platelet Count 229bil/L (150-400) Neutrophils (%) (Auto) 56.5% (40-74) Lymphocytes (%) (Auto) 28.7% (14-46) Monocytes (%) (Auto) 13.0% (4-12) Eosinophils (%) (Auto) 1.3% (0-5) Basophils (%) (Auto) 0.2% (0-3) Discharge Medications Discharge Medications Azelastine HCl (Astepro) 205.5 Mcg/0.137 Ml [place].pump 205.5 MCG NS BID ( Reported) Fluticasone Propionate (Flonase Allergy Relief) 50 Mcg/Actuation [place].susp 9.9 ML NS DAILY (Reported) Mometasone Furoate (Nasonex) 17 Gm [place].pump 1 SPRAY NS DAILY (Reported) As needed Albuterol Sulfate (Ventolin HFA Inhaler) 200 Puff/18 Gm Inhaler 2 PUFF INH Q4- 6H PRN PRN For Wheezing (Reported) Additional med instructions Please note changes to your BP medications. Check BP twice a day in the AM and PM. Report BP > 180 SBP or DBP> 100 Followup Plan Discharge Diet: Heart Healthy Discharge Activity: Other (W front wheeled walker) Patient Instructions Avoid quick movement, turning of head. Please stay well hydrated. Use front wheeled walker, Use compression stocking to help with drop in BP when you get up from laying down or sitting to standing. Please take aspirin and pravastatin as prescribed. Christal Nagy DO Jan 30, 2017 19:42 As needed Albuterol Sulfate (Ventolin HFA Inhaler) 200 Puff/18 Gm Inhaler 2 PUFF INH Q4- 6H PRN PRN For Wheezing (Reported) Additional med instructions Please note changes to your BP medications. Check BP twice a day in the AM and PM. Report BP > 180 SBP or DBP> 100 Followup Plan Discharge Diet: Heart Healthy Discharge Activity: Other (W front wheeled walker) Patient Instructions Avoid quick movement, turning of head. Please stay well hydrated. Use front wheeled walker, Use compression stocking to help with drop in BP when you get up from laying down or sitting to standing. Please take aspirin and pravastatin as prescribed. Christal Nagy DO Jan 30, 2017 19:42
[2017-01-30] MEDS ORDERED: Magnesium Sulf 2 Gm/50mL Water 2 GM in IV Premix 1 EACH IV ONE (19:50)
[2017-01-30] MEDS ORDERED: MetoCLOpramide 5 mg/mL 2 mL Inj IVPUSH ONE (19:50)
--- NOTE | 2017-01-30 20:12 | NUR ---
Code Stroke: Patients B/P was checked at 1605 sitting on her bed 152/84 pulse 68 . After the sitting B/p patient was taken for a walk in the [place] and she walked a full loop of the [place] [address]. Her B/P was rechecked just before going back into her room while she was standing Her B/P was 150/93 pulse 91. MD was notified of patients improved B/P and patients was being prepared to discharge. At that time patient was completely alert and oriented with no neurological deficits ,clear speech, steady gait ect. Patient was brought back into her room and she sat on the couch with her daughter. Around 1715 this nurse was called into patients room and daughter stated that patient was having difficulty expressing herself verbally. Patient stated that she was having a mild headache and she was holding her head. This nurse gave the patient some PRN Tylenol and let the Hospitalist know that patient was having some concerning difficulty with talking.Patient was brought down stairs and had a CT scan. Patients speech became progressively worse and she was speaking in word salad and not making sense and holding her head in obvious discomfort. Code stroke was called at 1735. Stroke team arrived. Patients B/P was 138/64 HR 101 , 02 sat on room air 96% RR18 and her blood sugar was 111. Labs ordered by MD were drawn and sent to the lab. Per MD patient was brought to the ED and consulted with [facility] Specialist. Per consult patient was not appropriate to receive TPN. Patient was brought back to her room and will later tonight have an MRI . Per MD order patient was given some Lorazepam for her comfort and patient was able to rest for a while. Patients family have been at bedside for this entire incident and are aware of the situation. Report was given to the oncoming nurse .
--- NOTE | 2017-01-30 20:18 | PCM.PNMED ---
Subjective Date of Service Jan 30, 2017 Subjective Patient is seen and examined this morning. Her blood pressures were better controlled on her current regimen of lisinopril 20 mg twice a day hydrochlorothiazide 25 mg and amlodipine 10 mg but not optimally controlled. Patient does not complain of headaches or nausea or vomiting. She has no chest pain. Her daughter had several questions that she wrote down, her questions were answered. We discussed positive discharge if patient achieves clearance 160/90 target consistently. Exam Vital Signs Vital Sign - Last Date Time Temp Pulse Resp B/P Pulse Ox O2 Delivery O2 Flow Rate FiO2 01/30/17 17:34 101 22 138/64 96 Room Air 01/30/17 13:03 36.8 Intake and Output 01/29/17 01/29/17 01/30/17 Cumulative From/Thru 15:00 23:00 07:00 01/27/17 12:03 - 01/30/17 06:53 Intake Total 1184 ml 700 ml 4213 ml Output Total 425 ml Balance 1184 ml 700 ml 3788 ml Intake Oral 1184 ml 700 ml 3120 ml IV Total 1093 ml Output Urine Total 425 ml # Voids 3 6 19 Exam General: No acute distress, elderly woman, appropriately interactive HEENT: Normocephalic, atraumatic. Neck: Supple with full range of motion. No jugular venous distension. No bruits. No lymphadenopathy or thyromegaly. Cardiovascular: Regular rate and rhythm with no murmurs, rubs, or gallops appreciated Pulmonary: Clear to auscultation bilaterally with no crackles, wheezes, or rhonchi. Normal respiratory effort with no use of accessory muscles. Abdomen: Bowel tones present. Soft, mildly tender diffusely, nondistended. No hepatosplenomegaly or masses appreciated. Skin: Normal temperature, Neurological: No focal deficits Psychiatric: Normal mood and affect. Alert and oriented to person, place, and time. IVs and Medications IV Fluids None Medications Reviewed: Medications were reviewed in detail Lab and Diagnostics Laboratory Tests Test 01/30/17 11:40 01/30/17 18:03 01/30/17 18:41 01/30/17 18:58 Thyroid Stimulating Hormone (TSH) 1.740uIU/mL (0.450-4.500) Free Thyroxine 1.54ng/dL (0.82-1.77) Hold Ba Top Tube Received (Received) Prothrombin Time 10.3sec (8.1-12.5) Prothromb Time International Ratio 0.96ratio Sodium Level 138mEq/L (134-144) Potassium Level 4.5mEq/L (3.5-5.2) Chloride Level 97mEq/L (97-108) Carbon Dioxide Level 26mmol/L (18-29) Blood Urea Nitrogen 17mg/dL (8-27) Creatinine 0.85mg/dL (0.57-1.00) Estimat Glomerular Filtration Rate 92mL/min (>59) Glucose Level 122mg/dL (60-99) Calcium Level 10.9mg/dL (8.5-10.1) Total Bilirubin 2.1mg/dL (0.0-1.2) Aspartate Amino Transf (AST/SGOT) 16U/L (0-50) Alanine Aminotransferase (ALT/SGPT) 13U/L (0-32) Alkaline Phosphatase 60U/L (25-165) Total Creatine Kinase 44U/L (21-215) Troponin T < 0.010ug/L (0.0-0.011) Total Protein 7.3g/dL (6.4-8.4) Albumin 4.4g/dL (3.4-5.0) White Blood Count 11.6th/mm3 (3.8-10.1) Red Blood Count 5.34mil/mm3 (3.90-5.20) Hemoglobin 16.0g/dL (12.0-15.6) Hematocrit 47.5% (35.0-46.0) Mean Corpuscular Volume 89.0fL (81-100) Mean Corpuscular Hemoglobin 30.0pg (27.0-35.0) Mean Corpuscular Hemoglobin Concent 33.7% (32.0-37.0) Red Cell Distribution Width 14.9% (12.3-15.4) Platelet Count 229bil/L (150-400) Neutrophils (%) (Auto) 56.5% (40-74) Lymphocytes (%) (Auto) 28.7% (14-46) Monocytes (%) (Auto) 13.0% (4-12) Eosinophils (%) (Auto) 1.3% (0-5) Basophils (%) (Auto) 0.2% (0-3) Result Diagram: 01/30/17 1858 01/30/17 1841 X-Rays, CTs and MRIs NDICATIONS: worst headache of life IMPRESSION: 1. Questionable focal decreased laguerre-white differentiation in the right occipital lobe. This finding may be associated with subacute or early chronic infarct. If further characterization assorted, noncontrast MRI may be helpful. 2. Mild findings likely associated with microvascular ischemic changes. These findings were discussed with Dr. Olmedo at 4:06 PM on 01/27/17. Dictated by: Nohemi Huntley M.D. on 01/27/2017 at 16:01 Approved by: Nohemi Huntley M.D. on 01/27/2017 at 16:08 ---- PROCEDURE: MRI STROKE PROTOCOL ([id number]) Pre- and post-contrast brain MRI, non-contrast brain MR angiogram, pre- and postcontrast neck MR angiogram INDICATIONS: abnormal CT brain IMPRESSION: BRAIN MRI: In the area of prior CT concern posterior right occipital area and no abnormality is found. BRAIN MR ANGIOGRAM: Normal intracranial MR angiogram. NECK MR ANGIOGRAM: The low cervical MR angiogram appears normal. Dictated by: Piotr Mayo M.D. on 01/27/2017 at 18:34 Approved by: Piotr Mayo M.D. on 01/27/2017 at 18:36 Cardiac Echo Impressions Interpretation Summary Normal left ventricle size with ejection fraction 60-65%. Grade I diastolic dysfunction. Severely dilated left atrium. Moderately dilated right atrium. Mild aortic valve sclerosis. Mild mitral annular calcification. Mild mitral regurgitation. Mild tricuspid regurgitation. The right ventricular systolic pressure is estimated at 53 mmHg assuming a right atrial pressure of 15 mm Hg. Moderate pulmonary hypertension. Possible small PFO noted in subcostal veiws. Assessment & Plan This is a pleasant 81-year-old female with no previous CVA/TIA/migraine history presenting today to the ER with severe headache. Her blood pressures at control , however CT scan of head showed suspicion for stroke, she is admitted to the blue team for stroke workup. Hypertensive urgency, present on admission improving -- Patient has not taken her home medications lisinopril, hydrochlorothiazide. She is endorsing good control of her blood pressures prior to today. Patient could be having headaches, nausea vomiting secondary to uncontrolled type hypertension. -- Overnight she had better BP control but later in the day BP started climbing again. Gave an additional amlodipine 5 mg -- Currently patient is on lisinopril 20 mg BID, hydrochlorothiazide, amlodipine 10 mg -- Labetalol 20 mg Q6H PRN with parameters SBP>=180 or DBP>=100, hold if HR<65, call MD -- At this point she is considered resistant HTN. -- Added metoprolol 25 mg twice a day by mouth -- TSH/T4 are ordered within normal Orthostatic hypotension, active -- Nursing reported positive orthostatics overnight. -- Consultation on the need for hydration, avoiding quick movements, compression stockings Concern for stroke/ subacute right occipital infarct, present on admission ongoing -- MR stroke protocol as ordered by the ER, patient has had the scan prior to arriving on the floor: Negative for acute stroke -- PT/ST/OT -- Echocardiogram in the a.m. showed concern for PFO, severely dilated left atrium, moderately dilated right atrium, diastolic grade 1 dysfunction -- Neuro checks, elevate head of bed 30 -- Lipid panel is ordered, atorvastatin 10 mg daily at bedtime -- A1c 5.6, nondiabetic -- We will plan for a cardiology outpatient visit/referral ziopatch/Holter monitor to monitor for atrial fibrillation Patent foramen ovale, as seen on echocardiogram -- She does have an increased risk for stroke due to suspicion for atrial fibrillation and PFO -- The late outpatient cardiology referral for consideration for KAYE Headache, present on admission resolved -- Patient is improving with improved blood pressure control -- Tylenol 3 as ordered on the floor every 4 hours when necessary -- ESR is ordered and negative, she has no pain or temporal artery. Low suspicion for temporal arteritis. -- Zofran for nausea, consider Benadryl/Reglan if stroke is ruled out -- Magnesium levels ordered, noted 1.4. Repleted with 2 g IV mag Hypomagnesemia, resolved -- Repleted with 2 g magnesium -- Continue to monitor Hypertension chronic uncontrolled -- Current management as above -- Continue to monitor COPD chronic stable -- Patient has duplicate medications Flovent, Advair, Flonase, Nasonex -- Ordered Advair, Flonase Chronic depression stable -- Continue home medication citalopram Disposition Patient is admitted under Inpatient status with expected length of stay greater than 2 midnights due to severity of presenting symptoms, risk of adverse event, and complexity of treatment plan. Discussed diagnosis, workup, imaging, and treatment plan with patient and family. They expressed an verbalized their understanding. Discharge likely later in the evening if blood pressure targets of 160/90 are achieved CODE STATUS: CPR okay, no life support or intubation Alternate decision-maker daughter Yadira. [phone], [place] Pain Evaluation: Adequate Pain Control Resuscitation Status: CPR: Attempt Resuscitation (patient does not want life support or intubation) Time spent 40 minutes Christal Nagy DO Jan 30, 2017 20:18
[2017-01-30] MEDS ORDERED: Amoxicillin-Clav 875-125 mg Tablet PO SCH (20:30)
--- NOTE | 2017-01-30 20:31 | PCM.PNMED ---
Subjective Date of Service Jan 30, 2017 Subjective Patient is seen and examined again later that afternoon around 345 and she was reportedly having an episode of headache, complained of having difficulty getting the words out. Her nurse stated that this happened right after she took her out for walk. A CT of the head was ordered. I called the nurse half- an-hour after that to check on the patient, nurse reported that patient is talking meaningless words not making sense. Event and examined the patient again, she is holding her head in her hands and saying yes or most of my questions, intermittently following commands but not consistently following commands.. She was also noted to have a left-sided mouth droop. Then she did talk, she appeared to be frustrated as she was not saying the right with sentences and words. Exam Vital Signs Vital Sign - Last Date Time Temp Pulse Resp B/P Pulse Ox O2 Delivery O2 Flow Rate FiO2 01/30/17 17:34 101 22 138/64 96 Room Air 01/30/17 13:03 36.8 Intake and Output 01/29/17 01/29/17 01/30/17 Cumulative From/Thru 15:00 23:00 07:00 01/27/17 12:03 - 01/30/17 06:53 Intake Total 1184 ml 700 ml 4213 ml Output Total 425 ml Balance 1184 ml 700 ml 3788 ml Intake Oral 1184 ml 700 ml 3120 ml IV Total 1093 ml Output Urine Total 425 ml # Voids 3 6 19 Exam Gen.: Patient is severely distressed HEENT: Minor left-sided mouth droop Heart: Regular rate and rhythm, no S3-S4 sounds Lungs: Clear to auscultation Abdomen soft nondistended Neurological: NIHS strokes scale was attempted, was not activated because patient was ignoring most commands. She was able to lift her left leg and not drop, but she did not want lift her right leg due to pain in her knee (she has pain at baseline), she also did not let me examine her eyes, she did not have fixed dilated pupils however, pupils that are equally reactive to light. Eyes appear injected Facial droop as above was noted. Patient was moving her arms in the room, and later she was able to ambulate and go to the toilet seat and try and use it. She also expressed intention to use the toilet appropriately. Psychiatric: Mildly agitated IVs and Medications Medications Reviewed: Medications were reviewed in detail Lab and Diagnostics Result Diagram: 01/30/17 1858 01/30/17 1841 X-Rays, CTs and MRIs NDICATIONS: worst headache of life IMPRESSION: 1. Questionable focal decreased laguerre-white differentiation in the right occipital lobe. This finding may be associated with subacute or early chronic infarct. If further characterization assorted, noncontrast MRI may be helpful. 2. Mild findings likely associated with microvascular ischemic changes. These findings were discussed with Dr. Olmedo at 4:06 PM on 01/27/17. Dictated by: Nohemi Huntley M.D. on 01/27/2017 at 16:01 Approved by: Nohemi Huntley M.D. on 01/27/2017 at 16:08 ---- PROCEDURE: MRI STROKE PROTOCOL ([id number]) Pre- and post-contrast brain MRI, non-contrast brain MR angiogram, pre- and postcontrast neck MR angiogram INDICATIONS: abnormal CT brain IMPRESSION: BRAIN MRI: In the area of prior CT concern posterior right occipital area and no abnormality is found. BRAIN MR ANGIOGRAM: Normal intracranial MR angiogram. NECK MR ANGIOGRAM: The low cervical MR angiogram appears normal. Dictated by: Piotr Mayo M.D. on 01/27/2017 at 18:34 Approved by: Piotr Mayo M.D. on 01/27/2017 at 18:36 Cardiac Echo Impressions Interpretation Summary Normal left ventricle size with ejection fraction 60-65%. Grade I diastolic dysfunction. Severely dilated left atrium. Moderately dilated right atrium. Mild aortic valve sclerosis. Mild mitral annular calcification. Mild mitral regurgitation. Mild tricuspid regurgitation. The right ventricular systolic pressure is estimated at 53 mmHg assuming a right atrial pressure of 15 mm Hg. Moderate pulmonary hypertension. Possible small PFO noted in subcostal veiws. Assessment & Plan This is a pleasant 81-year-old female with no previous CVA/TIA/migraine history presenting today to the ER with severe headache. Her blood pressures at control , however CT scan of head showed suspicion for stroke, she is admitted to the blue team for stroke workup. Neurological symptoms were finding difficulty, word salad, m mouth droop acute -- CT of head was ordered at the time of her initial finding at about 3:45 PM. 5:30 PM, stroke code was called, neurologist Dr. donaldson was called. I have gone over the contraindications to TPA to Dr. Diaz, who felt that patient could be given TPA. Pharmacy was called to the floor with TPA. [facility] was contacted, Dr. Thakur at the call and was briefed. Patient's imaging was pushed to [facility]. [facility] recommended to the conferencing in the ER room 8, Dr. Tracey actually did the test conferencing, his recommendation was no TPA as he does not believe this is a vascular event. He recommends a follow- up MRA instead. Note the CT scan that was done this afternoon around 4 PM was negative for acute bleed. [facility] was contacted again after 7:00 PM after this shift change, Dr. Duncan was briefed on the case, who recommends repeating the mag sulfate 2 g IV, Reglan 10 mg IV, Depakote 1 g IV, he also states that Compazine and Benadryl would also work but since they will make patient more sedated he would try other medications first. Patient was given mag sulfate 2 g IV Reglan 10 mg IV. Night hospitalist was briefed, he was asked to contact [facility] with an abnormal MRI findings. The patient was also given half milligram IV Ativan for this MRI scan as she appeared anxious. -- Requested the staff to send patient echo, the latest MRI to [facility] tonight Hypertensive urgency, present on admission improving -- Patient has not taken her home medications lisinopril, hydrochlorothiazide. She is endorsing good control of her blood pressures prior to today. Patient could be having headaches, nausea vomiting secondary to uncontrolled type hypertension. -- Overnight she had better BP control but later in the day BP started climbing again. Gave an additional amlodipine 5 mg -- Currently patient is on lisinopril 20 mg BID, hydrochlorothiazide, amlodipine 10 mg -- Labetalol 20 mg Q6H PRN with parameters SBP>=180 or DBP>=100, hold if HR<65, call MD -- At this point she is considered resistant HTN. -- Added metoprolol 25 mg twice a day by mouth -- TSH/T4 are ordered within normal - Dr. Duncan from [facility] recommends that we continue current antihypertensives the patient has. Orthostatic hypotension, active -- Nursing reported positive orthostatics overnight. -- Consultation on the need for hydration, avoiding quick movements, compression stockings Concern for stroke/ subacute right occipital infarct, present on admission ongoing -- MR stroke protocol as ordered by the ER, patient has had the scan prior to arriving on the floor: Negative for acute stroke -- PT/ST/OT -- Echocardiogram in the a.m. showed concern for PFO, severely dilated left atrium, moderately dilated right atrium, diastolic grade 1 dysfunction -- Neuro checks, elevate head of bed 30 -- Lipid panel is ordered, atorvastatin 10 mg daily at bedtime -- A1c 5.6, nondiabetic -- We will plan for a cardiology outpatient visit/referral ziopatch/Holter monitor to monitor for atrial fibrillation Patent foramen ovale, as seen on echocardiogram -- She does have an increased risk for stroke due to suspicion for atrial fibrillation and PFO -- The late outpatient cardiology referral for consideration for [facility]AYE Headache, present on admission resolved -- Patient is improving with improved blood pressure control -- Tylenol 3 as ordered on the floor every 4 hours when necessary -- ESR is ordered and negative, she has no pain or temporal artery. Low suspicion for temporal arteritis. -- Zofran for nausea, consider Benadryl/Reglan if stroke is ruled out -- Magnesium levels ordered, noted 1.4. Repleted with 2 g IV mag Hypomagnesemia, resolved -- Repleted with 2 g magnesium -- Continue to monitor Hypertension chronic uncontrolled -- Current management as above -- Continue to monitor COPD chronic stable -- Patient has duplicate medications Flovent, Advair, Flonase, Nasonex -- Ordered Advair, Flonase Chronic depression stable -- Continue home medication citalopram Disposition Patient is admitted under Inpatient status with expected length of stay greater than 2 midnights due to severity of presenting symptoms, risk of adverse event, and complexity of treatment plan. Discussed diagnosis, workup, imaging, and treatment plan with patient and family. They expressed an verbalized their understanding. Discharge likely later in the evening if blood pressure targets of 160/90 are achieved CODE STATUS: CPR okay, no life support or intubation Alternate decision-maker daughter Yadira. [phone], [place] Resuscitation Status: CPR: Attempt Resuscitation (patient does not want life support or intubation) Time spent One hour Christal Nagy DO Jan 30, 2017 20:31
[2017-01-30] MEDS: Fluticasone 0.05% 15 Spray/2 Gm 16 Gm Nasal Spray NASAL SCH (21:00)
[2017-01-30] MEDS ORDERED: 0.9% Sodium Chloride 1,000 ML IV SCH (21:25)
--- NOTE | 2017-01-30 21:33 | PCM.PNMED ---
Subjective Date of Service Jan 30, 2017 Subjective Patient was anxious and despite Ativan 1 mg IV she refused to undergo the MRI Joel Chávez MD Jan 30, 2017 21:33
[2017-01-30] MEDS ORDERED: Haloperidol 5 mg/mL Inj IVPUSH ONE (22:55)
[2017-01-31] VITALS (14 sets, daily range): BP systolic 141–215; BP diastolic 67–99; PULSE 86–117; RESP 10–32; O2SAT 94–100
[2017-01-31] MEDS ORDERED: MetoCLOpramide 5 mg/mL 2 mL Inj ONE (03:04)
[2017-01-31] MEDS ORDERED: Haloperidol 5 mg/mL Inj IVPUSH ONE (03:05)
[2017-01-31 03:52] LABS: APPEARANCE,URINE CLEAR (CLEAR,HAZY); COLOR,URINE YELLOW (YELLOW); OCCULT BLOOD,URINE NEGATIVE (NEGATIVE); UROBILINOGEN,URINE NORMAL (NORMAL)
--- NOTE | 2017-01-31 06:38 | NUR ---
MRI/Mentation Pt was taken to MRI after 0.5 mg of IV Ativan was given but pt very combative and so pt was taken back to floor, another 1mg of Ativan was given and pt taken back to MRI but pt still was not cooperative and also this try had to be abandoned. Pt intermittently very restless and uncooperative, trying to get OOB and being combative. Haldol IV was given with good results and several hours later another dose was given. Pt had PVR of about 600cc, straight cath was performed. Pt has mostly word salad, only clear phrase is "come on". Pt kept NPO, aware and SBP of 215 treated x1 with IV Labetalol and improved to 179.
[2017-01-31] MEDS: Pantoprazole 20 mg ER24 Tablet PO SCH (07:30)
[2017-01-31] MEDS: Fluticasone-Salmeterol 500-50 Inhaler INHALATION SCH ×2 (08:30→20:30)
[2017-01-31] MEDS: guaiFENesin 600 mg ER12 Tablet PO SCH ×2 (08:30→20:30)
[2017-01-31] MEDS ORDERED: Valproate Sodium Inj 1,000 MG in Dextrose 5% 100 ML IV ONE (09:50)
[2017-01-31] MEDS ORDERED: 0.9% Sodium Chloride 1,000 ML IV SCH (10:10)
--- NOTE | 2017-01-31 11:45 | NUR ---
Social Work-readiness for discharge: Data:EMR reviewed. Pt is on day 4 of hospitalization for R/O stroke per H&P. Pt is not medically stable anticipate 1-2 more days. PT has cleared pt for home with outpt PT services. Pt to return home with family support. No other SW needs identified. SW will continue to follow if needs arise. Assessment:Pt who is independent at baseline. Plan:Pt to discharge home when medically stable via POV. No other SW needs identified. SW will continue to follow if needs arise. TEJINDER Wiggins
--- NOTE | 2017-01-31 11:45 | NUR ---
off unit pt left unit for CT angio. Pt was sleeping and displayed no s/s of distress at time of transfer Addendum: 01/31/17 at 1646 by WILLIE ROSAS RN [id number] pt was too combative and ct was unable to perform test.
--- NOTE | 2017-01-31 16:47 | NUR ---
mentation Pt slept most of shift and intermittently tried to get out of bed. Bladder scan showed 978ml. Pt was unable to void on bedside and a straight cath was done with > 600mL out. Order for placed by MD Yen. Pt had severe word salad and was unable to communicate at all during shift with no other neuro deficits. Family at bedside were able to help comfort patient.
--- NOTE | 2017-01-31 16:59 | NUR ---
Morphine/Behavior Called into pt's room by primary RN, [place], approx 15:20. Pt out of bed, standing, unable to follow commands, gently pushing away RN. Primary RN attempting to keep pt safe from falling or pulling out IV. This RN noted pt to have voided on the floor, and to be holding her head intermittently, grimacing. BSC was offered, but again pt unable to follow directions. IV morhpine given by this RN, with assistance of 2 more Rn's pt assisted back to bed. PVR shows >900ml.
[2017-01-31] MEDS ORDERED: Lactated Ringer's 1,000 ML IV SCH (17:01)
[2017-01-31] MEDS ORDERED: Lactated Ringer's 500 ML IV PRN (17:01)
[2017-01-31] MEDS ORDERED: fentaNYL-PF 50 mCg/mL 2 mL Inj IVPUSH PRN (17:05)
[2017-01-31] MEDS ORDERED: EPHEDrine Sulfate 50 mg/mL Inj IVPUSH PRN (17:05)
[2017-01-31] MEDS ORDERED: Phenylephrine 10,000 mCg/mL Inj IVPUSH PRN (17:05)
--- NOTE | 2017-01-31 17:23 | PCM.HPANE ---
Patient Data Surgeon Admitting Provider:Christal Nagy DO Attending Provider:Christal Nagy DO Primary Care Physician:Jovon Martínez MD Other Provider: Reason for Visit R/O Stroke, Severe Headache Ht/WT & BMI Height (Feet): 5 Height (Inches): 2.00 Weight (Kilograms): 75.000 Body Mass Index 30.43 Allergies Coded Allergies: Cat Dander (Unverified Allergy, Unknown, 01/28/17) Uncoded Allergies: CATS (Allergy, Intermediate, ITCHING, 01/27/17) DUST MITES (Allergy, Intermediate, ITCHING, 01/27/17) Past Anesthesia History Anesthesia History: Denies:: Abnormal Airway, Anesthesia Reactions, Difficult Intubation, Fam Anesthesia Reaction, Fam Malignant Hypertherm, Malignant Hyperthermia Diabetes History Hx Diabetes?: No MRSA MRSA: No Medications Blood Thinner: Aspirin Active Scripts Metoprolol Tartrate 25 Mg Nuouyd07 Mg PO BID 14 Days Prov:Christal Nagy DO 01/30/17 Amlodipine 5 Mg Ezuows82 Mg PO DAILY 14 Days Prov:Christal Nagy DO 01/30/17 Pravastatin 10 Mg Kdodww05 Mg PO HS #14 TABLET Ref 0 Prov:Christal Nagy DO 01/29/17 Lisinopril 20 Mg Wdlhmd24 Mg PO BID 14 Days Ref 0 Prov:Christal Nagy DO 01/29/17 Reported Medications Prednisone (PredniSONE)5 Mg Tab5 Mg PO DAILY Ref 0 01/27/17 Fluticasone Propionate (Flovent Diskus)50 Mcg Disk.w.dev1 Puff IH BID #1 INHALER Ref 0 01/05/16 Omeprazole 20 Mg Capsule.dr20 Mg PO DAILY Ref 0 01/01/16 Fluticasone Propionate (Flonase Allergy Relief)50 Mcg/Actuation Manson.susp9.9 Ml NS DAILY 01/01/16 Aspirin 81 Mg Iosqyv89 Mg PO DAILY Ref 0 01/01/16 Mometasone Furoate (Nasonex)17 Gm Manson.pump1 Manson NS DAILY #1 PKG Ref 0 12/20/13 Albuterol Sulfate (Ventolin HFA Inhaler)200 Puff/18 Gm Inhaler2 Puff INH Q4-6H PRN For Wheezing #1 INHALER Ref 0 12/20/13 Lisinopril 20 Mg Zwasav64 Mg PO DAILY 30 Days Ref 0 12/20/13 Latanoprost 2.5 Ml Drops1 Gtt OP HS #1 BOTTLE 12/20/13 Hydrochlorothiazide 25 Mg Vesuje58 Mg PO DAILY 30 Days Ref 0 12/20/13 Citalopram 20 Mg Tablet0.5 Tab PO DAILY 30 Days Ref 0 12/20/13 Azelastine HCl (Astepro)205.5 Mcg/0.137 Ml Manson.bmzq822.5 Mcg NS BID 12/20/13 Fluticasone/Salmeterol (Advair 500-50 Diskus)1 Each Disk.w.dev2 Puff IH BID #1 DISK Ref 0 12/20/13 Discontinued Reported Medications Prednisolone (Millipred)5 Mg Tablet5 Mg PO PRN asthma 12/20/13 History History of ENT Problems?: Yes HEENT History: Positive for:: Cataracts Glaucoma Sinus Problem (HX CHRONIC SINUSITIS) Denies:: Abnormal Airway Difficult Intubation Dysphagia Hearing Problem Denture Type: None Teeth Condition: Within Normal Limits Hx of Heart Problems?: Yes Cardiovascular History: Positive for:: Hypertension Irregular Heartbeat (ED VISIT 12/2014 FOR PALPITATIONS/TACHY-PROB. R/T STEROIDS) Denies:: AICD Abdominal Aortic Aneurism Atrial Fibrillation Cardiac Surgery Chest Pain Congestive Heart Failure Coronary Artery Disease Edema Heart Murmur Pacemaker Peripheral Vascular Rheumatic Fever Thrombophlebitis Valvular Heart Disease Hx of Respiratory Problem?: Yes Respiratory History: Positive for:: Asthma Dyspnea (MILD ARROYO) Pneumonia (HX OF BRONCHITIS) Denies:: COPD Chest Surgery Cough Emphysema Hemoptysis Oxygen Administration Pulmonary Embolism Tuberculosis Use of C-PAP Machine Use of Inhalers / NEBS Hx Neurologic Problems?: Yes (currently somnolent) Neurological History: Denies:: CVA Dementia Hx of GI Problems?: Yes Gastrointestinal History: Denies:: Cirrhosis Diverticulitis Gall Bladder Disease Gastroesphageal Reflux Gastrointestinal Bleeding Heartburn Hepatitis Hiatal Hernia Liver Disease Rectal Bleeding Hx of Problems?: No Genitourinary History: Denies:: HX of Hemodialysis Kidney Stones Urinary Tract Infection HX of Peritoneal Dialysis: No Female Hx: Denies:: Currently Endometriosis Pelvic Inflammatory Problems with Breasts? Skin History: Denies:: History Skin Disorders? Pressure Ulcers Hx Musculoskeletal Problems?: No Musculoskeletal History: Positive for:: Joint Replacement (S/P RT TKA) Musculoskeletal Trauma (HX BILAT SHOULDER PAIN ?? ROTATOR CUFF PROBLEMS) Denies:: Back Injury (C/OF CHRONIC BACK PAIN/SCIATICA S/P THIAGO'S) Degenerative Joint Fibromyalgia Myasthenia Gravis Osteoarthritis Rheumatoid Arthritis Systemic Lupus Hx of Psycho/Social Problems?: Yes Psycho Social History: Positive for:: Anxiety Hx Depression Denies:: Bipolar Disorder Suicide Attempt Hx Surgeries?: Yes (right knee replacement/tonsillectomy/gallbladder/partial hystectomy) Hx Any Other Health Problems?: Yes Other History: Denies:: Cancer Endocrine Disease Hospitalization Thyroid Disease History Blood Transfusions: Positive for:: Accept Blood Products? Denies:: Blood Transfuse Reaction Blood Transfusions Hx Diabetes: No Hx Alcohol Use: Yes ("SOCIAL")Alcoholic Drinks Per Day: 1-2/wk one drinkHx Substance Use: No Smoking Status: Former Smoker Have You Smoked inLast 12 mo: No Stop/Bang Treated for Sleep Apnea?: No Do You Have a CPAP Machine?: No S-Snoring: Do You Snore Loudly: Yes T-Tired: feel tired, fatigued: Yes O-Obsered: Observed not breath: No P-Blood Pressure: treated: Yes B- Body Mass Index > 35 kg/m2: No A- Age over 50: Yes N- Neck Large Circumference: No G- Gender Male: No LATRICE Total Score: 3 Risk Assessment Category Category 1A: Patient has history of documented sleep apnea, and HAS NOT received any narcotic, sedative or anesthesia administration during this stay. Category 1B: Patient has history of documented sleep apnea, and HAS received any narcotic , sedative or anesthesia administration during this stay Category 2: Patient has SUSPECTED Obstructive Sleep Apnea, and HAS received any narcotic , sedative or anesthesia administration during this stay. Category 3: Patient has SUSPECTED Obstructive Sleep Apnea and HAS NOT received narcotic, sedative or anesthesia administration during this stay. Category 4: Outpatient in Procedural Areas with known sleep apnea or who screen positive for High Risk via the STOP/BANG questionnaire. Exam Exam Vital Signs Vital Signs Date Time Temp Pulse Resp B/P Pulse Ox O2 Delivery O2 Flow Rate FiO2 01/31/17 09:43 103 20 173/83 Room Air 01/31/17 08:51 102 General Appearance: No Acute Distress, Other (somnolent received ativan this afternoon) HEENT/AIRWAY: MP 2, Neck Movement (FROM), Mouth Opening (3 FBMO) Lungs: Clear to Auscultation, Normal Air Movement Heart: No Murmurs/Rubs/Gallops, Other (palpitations) Meds/Labs/Diagnostics Admission Meds Current Medications Lorazepam 0.5 mg 0.5 mg ONCE ONCE IVPUSH Last administered on 01/30/17 19:12 ; Start 01/30/17 at 18:50; Stop 01/30/17 at 18:51; Status DC Magnesium Sulfate/ Premix (Magnesium Sulf 2 Gm/50mL Water/ IV Premix) 50 ml @ 50 mls/hr ONCE ONCE IV Last administered on 01/30/17 21:48; Start 01/30/17 at 19:50; Stop 01/30/17 at 20:49; Status DC Metoclopramide HCl (Reglan Inj) 10 mg ONCE ONCE IVPUSH Last administered on 03:10; Start 01/30/17 at 19:50; Stop 01/30/17 at 20:11; Status DC Lorazepam 1 mg 1 mg ONCE ONCE IVPUSH Last administered on 01/30/17 20:36; Start 01/30/17 at 20:20; Stop 01/30/17 at 20:23; Status DC Sodium Chloride (Normal Saline) 1,000 ml @ 80 mls/hr [id number] IV Last administered on 01/30/17 21:48; Start 01/30/17 at 21:25; Stop 01/31/17 at 14:14 ; Status DC Haloperidol Lactate (Haldol Inj) 5 mg ONCE ONCE IVPUSH Last administered on 23:30; Start 01/30/17 at 22:55; Stop 01/30/17 at 22:56; Status DC Haloperidol Lactate 5 mg 5 mg ONCE ONCE IVPUSH Last administered on 01/31/17 03:10; Start 01/31/17 at 03:05; Stop 01/31/17 at 03:08; Status DC Valproate Sodium/ Dextrose/Water (Depacon Inj/D5W) 110 ml @ 110 mls/hr ONCE ONCE IV Last administered on 01/31/17 10:47; Start 01/31/17 at 09:50; Stop at 10:49; Status DC Labs Test 01/27/17 12:40 01/28/17 05:55 01/28/17 06:45 01/29/17 11:40 Erythrocyte Sedimentation Rate 1mm/hr (0-40) Hemoglobin A1c 5.6% (4.8-5.6) Lipase 25U/L (13-60) Triglycerides Level 74mg/dL (0-149) Cholesterol Level 182mg/dL (100-199) LDL Cholesterol, Calculated 79.200mg/dL (0-99) VLDL Cholesterol 14.800mg/dL HDL Cholesterol 88mg/dL (>39) Cholesterol/HDL Ratio 2.07 (0.0-4.4) Hold Urine Received (Received) Magnesium Level 1.8mg/dL (1.6-2.6) Test 01/30/17 11:40 01/30/17 18:03 01/30/17 18:41 01/30/17 18:58 Thyroid Stimulating Hormone (TSH) 1.740uIU/mL (0.450-4.500) Free Thyroxine 1.54ng/dL (0.82-1.77) Hold Ba Top Tube Received (Received) Prothrombin Time 10.3sec (8.1-12.5) Prothromb Time International Ratio 0.96ratio Total Creatine Kinase 44U/L (21-215) Troponin T < 0.010ug/L (0.0-0.011) White Blood Count 11.6th/mm3 (3.8-10.1) Red Blood Count 5.34mil/mm3 (3.90-5.20) Hemoglobin 16.0g/dL (12.0-15.6) Hematocrit 47.5% (35.0-46.0) Mean Corpuscular Volume 89.0fL (81-100) Mean Corpuscular Hemoglobin 30.0pg (27.0-35.0) Mean Corpuscular Hemoglobin Concent 33.7% (32.0-37.0) Red Cell Distribution Width 14.9% (12.3-15.4) Platelet Count 229bil/L (150-400) Neutrophils (%) (Auto) 56.5% (40-74) Lymphocytes (%) (Auto) 28.7% (14-46) Monocytes (%) (Auto) 13.0% (4-12) Eosinophils (%) (Auto) 1.3% (0-5) Basophils (%) (Auto) 0.2% (0-3) Test 01/31/17 03:35 01/31/17 05:40 Urine Color Yellow (YELLOW) Urine Appearance Clear (CLEAR,HAZY) Urine pH 7.0 (5.0-8.0) Urine Specific [place] 1.010 (1.003-1.035) Urine Protein Negativemg/dL (NEG,TRACE) Urine Glucose (UA) Negativemg/dL (NEGATIVE) Urine Ketones 15mg/dL (NEGATIVE) Urine Occult Blood Negative (NEGATIVE) Urine Nitrite Negative (NEGATIVE) Urine Bilirubin Negative (NEGATIVE) Urine Urobilinogen Normalmg/dL (NORMAL) Urine Leukocyte Esterase Negative (NEGATIVE) Urine RBC 0-2/hpf (0-2) Urine WBC 0-5/hpf (0-5) Urine Epithelial Cells Occasional/hpf (NONE-MOD) Urine Crystals None seen (NONE SEEN) Urine Bacteria None/hpf (NONE-FEW) Urine Hyaline Casts Occasional/lpf (NONE) Urine Granular Casts None seen (NONE SEEN) Urine Waxy Casts None seen (NONE SEEN) Urine Red Blood Cell Casts None seen (NONE SEEN) Urine White Blood Cell Casts None seen (NONE SEEN) Urine Mucus None seen (None Seen) Urine Trichomonas None seen (NONE SEEN) Urine Yeast None (NONE SEEN) Urinalysis Comment None Urine Culture Reflexed Not indicated Sodium Level 134mEq/L (134-144) Potassium Level 3.7mEq/L (3.5-5.2) Chloride Level 94mEq/L (97-108) Carbon Dioxide Level 19mmol/L (18-29) Blood Urea Nitrogen 14mg/dL (8-27) Creatinine 0.55mg/dL (0.57-1.00) Estimat Glomerular Filtration Rate 153mL/min (>59) Glucose Level 145mg/dL (60-99) Calcium Level 10.2mg/dL (8.5-10.1) Total Bilirubin 2.3mg/dL (0.0-1.2) Aspartate Amino Transf (AST/SGOT) 18U/L (0-50) Alanine Aminotransferase (ALT/SGPT) 11U/L (0-32) Alkaline Phosphatase 57U/L (25-165) Total Protein 6.7g/dL (6.4-8.4) Albumin 4.3g/dL (3.4-5.0) Plan Impression Patient chart reviewed, patient interviewed and anesthestic plan with risks, benefits, and alternatives discussed, and informed consent obtained. NPO per Anesth. Guidelines: Yes ASA Physical Status: ASA3 Plus Emergency Anesthetic Plan: GA, MAC Bene/Risks/Altern/Consents: Yes HP Complete Prior to Induction: Yes Grant Crisostomo MD Jan 31, 2017 15:55
--- NOTE | 2017-01-31 17:24 | PCM.ANEP1 ---
Post Anesthesia PACU Phase 1 Assessment Vital Signs Vital Signs Date Time Temp Pulse Resp B/P Pulse Ox O2 Delivery O2 Flow Rate FiO2 01/31/17 17:15 37.3 88 30 152/67 98 Nasal Cannula 3 01/31/17 17:10 86 18 141/78 98 Nasal Cannula 3 01/31/17 17:05 87 17 155/73 97 Nasal Cannula 3 01/31/17 17:00 93 10 154/71 99 Nasal Cannula 3 01/31/17 16:58 37.5 158/79 01/31/17 09:43 103 20 173/83 Room Air Anesthetic Administered: GA Level of Alertness: Drowsy, not talking [facility] with Equal Strength: Yes Pain: Yes (patient unabel to rate ) Pain Scale Score: 0 Nausea or Vomiting: No CV Function & Hydration Stable: Yes Airway Device: n/a Oxygen Delivery: Nasal Cannula Lungs: Clear to Auscultation, Normal Air Movement Dermatome Level: Full Sensation PACU Phase 2 Assessment Complications: No Follow up Care: N/A Patient Instructions Provided: N/A Grant Crisostomo MD Jan 31, 2017 17:24
--- NOTE | 2017-01-31 17:28 | DRSVH ---
PROCEDURE: CT ANGIO BRAIN INDICATIONS: intractable headache TECHNIQUE: Precontrast 4.5 mm thick angled axial sections acquired from the foramen magnum to the vertex. Afte r the administration of intravenous contrast, 1 mm thick sections acquired from the skull base to the vertex after an appropriate venous phase delay. Postcontrast 4.5 mm thick sections then re-acquired from the foramen magnum to the vertex. 3-dimensional eqqlyoi-xlfiqtneq-yqytxqecmz (MIP) and/or volu me rendering reformats were acquired of the venous structures. COMPARISON: None. FINDINGS: Image quality: Excellent. Venous structures: Sagittal sinuses appear patent. The left transverse sinus sigmoid sinus and proxi mal left internal jugular vein are patent. There is absence of flow in the right transverse sinus wit h very diminished flow in the right sigmoid sinus and the proximal right internal jugular vein is occ luded. CSF spaces: Ventricles are normal in size and shape. Basal cisterns are patent. No extra-axial flu id collections. Brain: No midline shift. No intracranial bleeds or masses. Mahoney-white matter interface appears int act. Atherosclerotic calcifications are noted in the cavernous and sigmoid segments of the internal c arotid arteries bilaterally which causes multifocal mild to moderate stenoses. Skull and face: Calvarium and facial bones appear intact, without suspicious lesions. Sinuses: Visualized sinuses and mastoids are clear. IMPRESSION: 1. Thrombus involving the right transverse sinus and the proximal right internal jugular vein. 2. Findings telephoned to Dr. Christal Nagy on 01/31/2017 at 1723 hrs. Dictated by: Agnieszka Smith MD, PhD on 01/31/2017 at 17:18 Approved by: Agnieszka Smith MD, PhD on 01/31/2017 at 17:26
[2017-01-31] MEDS ORDERED: Heparin 25K Unit/500mL 0.45 NS 25,000 UNIT in IV Premix 1 EACH IV SCH (18:20)
[2017-01-31] MEDS ORDERED: Heparin 5,000 Unit/mL Inj IVPUSH PRN (18:20)
[2017-01-31] MEDS ORDERED: Labetalol 5 mg/mL 20 mL Inj IVPUSH PRN (18:40)
--- NOTE | 2017-01-31 18:47 | PCM.DC.MED ---
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 Questionable focal decreased mahoney-white differentiation in the right occipital lobe. This finding may be associated with subacute or early chronic infarct. If further characterization assorted, noncontrast MRI may be helpful. 2. Mild findings likely associated with microvascular ischemic changes. These findings were discussed with Dr. Olmedo at 4:06 PM on 01/27/17. Dictated by: Nohemi Huntley M.D. on 01/27/2017 at 16:01 Approved by: Nohemi Huntley M.D. on 01/27/2017 at 16:08 ---- PROCEDURE: MRI STROKE PROTOCOL ([id number]) Pre- and post-contrast brain MRI, non-contrast brain MR angiogram, pre- and postcontrast neck MR angiogram INDICATIONS: abnormal CT brain IMPRESSION: BRAIN MRI: In the area of prior CT concern posterior right occipital area and no abnormality is found. BRAIN MR ANGIOGRAM: Normal intracranial MR angiogram. NECK MR ANGIOGRAM: The low cervical MR angiogram appears normal. Dictated by: Piotr Mayo M.D. on 01/27/2017 at 18:34 Approved by: Piotr Mayo M.D. on 01/27/2017 at 18:36 PROCEDURE: CT ANGIO BRAIN INDICATIONS: intractable headache TECHNIQUE: Precontrast 4.5 mm thick angled axial sections acquired from the foramen magnum to the vertex. After the administration of intravenous contrast, 1 mm thick sections acquired from the skull base to the vertex after an appropriate venous phase delay. Postcontrast 4.5 mm thick sections then re-acquired from the foramen magnum to the vertex. 3-dimensional hzhpusf-auxcysapi-nlvaxjcjrs (MIP) and/or volume rendering reformats were acquired of the venous structures. COMPARISON: None. FINDINGS: Image quality: Excellent. Venous structures: Sagittal sinuses appear patent. The left transverse sinus sigmoid sinus and proximal left internal jugular vein are patent. There is absence of flow in the right transverse sinus with very diminished flow in the right sigmoid sinus and the proximal right internal jugular vein is occluded. CSF spaces: Ventricles are normal in size and shape. Basal cisterns are patent. No extra-axial fluid collections. Brain: No midline shift. No intracranial bleeds or masses. Mahoney-white matter interface appears intact. Atherosclerotic calcifications are noted in the cavernous and sigmoid segments of the internal carotid arteries bilaterally which causes multifocal mild to moderate stenoses. Skull and face: Calvarium and facial bones appear intact, without suspicious lesions. Sinuses: Visualized sinuses and mastoids are clear. IMPRESSION: 1. Thrombus involving the right transverse sinus and the proximal right internal jugular vein. 2. Findings telephoned to Dr. Christal Nagy on 01/31/2017 at 1723 hrs. Dictated by: Agnieszka Smith MD, PhD on 01/31/2017 at 17:18 Approved by: Agnieszka Smith MD, PhD on 01/31/2017 at 17:26 PROCEDURE: CT BRAIN WITHOUT CONTRAST ([id number]) INDICATIONS: 81 year-old female with severe headaches. TECHNIQUE: Noncontrast 4.5 mm thick angled axial sections acquired from the foramen magnum to the vertex, with coronal reformats. COMPARISON: [facility], CT, CT BRAIN WO CON, 01/27/2017, 14:10. FINDINGS: Image quality: Excellent. CSF spaces: Basal cisterns are patent. No extra-axial fluid collections. Ventricles are normal in size and shape. Brain: No midline shift. No intracranial masses or hemorrhage. Mahoney-white matter interface is normal. There is intracranial internal carotid artery atherosclerosis. Skull and face: Calvarium and visualized facial bones are intact, without suspicious lesions. Sinuses: Dependent fluid within the left sphenoid sinus is again noted. Other visualized sinuses and mastoids appear clear. IMPRESSION: 1. No acute intracranial abnormalities. 2. Persistent dependent fluid within the left sphenoid sinus, suggesting sinusitis. Dictated by: Farrukh Aquino M.D. on 01/30/2017 at 16:52 Approved by: Farrukh Aquino M.D. on 01/30/2017 at 16:55 Cardiac Echo Impression Interpretation Summary Normal left ventricle size with ejection fraction 60-65%. Grade I diastolic dysfunction. Severely dilated left atrium. Moderately dilated right atrium. Mild aortic valve sclerosis. Mild mitral annular calcification. Mild mitral regurgitation. Mild tricuspid regurgitation. The right ventricular systolic pressure is estimated at 53 mmHg assuming a right atrial pressure of 15 mm Hg. Moderate pulmonary hypertension. Possible small PFO noted in subcostal veiws. Brief History Mrs. Andres is a 81-year-old white female with past medical history of hypertension that is well controlled on medications, COPD, chronic back pain is presenting to the ER with complaints of worst headache of her life. She endorses no prior history of headaches or migraines. Pain onset was 4 days ago location is frontal at home apparently topical cannabis has provided some relief. At the time of this interview her headache is improved at 3 out of 10, still in the frontal area. She describes no vision problems no prior CVA or TIA history. She states that she did not take her medications this morning. She has received narcotics and Dilaudid IV in the ER that help her pain. She states that she has chronic phlegm from her COPD. She has chronic neck or shoulder pain. And she described this pain in the ER as well as some pain above the teeth. In the room currently she has no teeth pain she has no dizziness or shortness of breath is at baseline, she has no confusion. She has no chest pain, abdominal pain or GI symptoms. She denied nausea vomiting however when she tried to take some snack in the room she has started vomiting. She states that because she is very hungry and has not had anything to eat since this morning. Patient has had no fevers or chills recently and no recent infections. In the ER CT scan without contrast showed no subdural hemorrhage and no subarachnoid hemorrhage but showed concern for subacute right occipital infarct. Her lab is also fairly unremarkable. Patient was admitted to the blue team for stroke workup. Hospital Course This is a pleasant 81-year-old female with no previous CVA/TIA/migraine history presenting today to the ER with severe headache. Her blood pressures at control , however CT scan of head showed suspicion for stroke, she is admitted to the blue team for stroke workup. R internal jugular and R transverse sinus thrombosis, acute -- On 01/30 PM, patient was noted to have an acute change in status, has had severe headaches, word finding difficulty, word salad and left sided facial droop. [facility] neuro was consulted, and they recommended no tPA. A repeat CT showed no hemorrhage. A repeat MRA Stoney was attempted upon their recommendation , was not performed due to patient's agitation on 01/30 PM. A CTA venogram was attempted, once again had to be aborted due to combativeness, patient had to undergo sedation by anesthesia in order for her to have the test done. In the afternoon of 01/31, radiology reported a right internal jugular thrombus and a right transverse sinus thrombus. -- Earlier in the day 01/31, Dr. Suárez was briefed on patient, regarding her course yesterday which involved a tele conference with Dr. Tracey after a phone call w/ Dr. Thakur. Later in [facility] night 01/30, we discussed case with Dr. Duncan , We appreciate their recommendations. -- [facility] neurology Dr. Roberto Suárez is briefed again after receiving the CTA result, he will accept the patient for a transfer. He asked patient to be kept on DVT/PE heparin drip w/o bolus. This was done with a goal aPTT<51 -- Patient's family was briefed on the situation, they are agreeable to transfer. -- Hypertensive urgency, present on admission improving -- Patient has not taken her home medications lisinopril, hydrochlorothiazide. She is endorsing good control of her blood pressures prior to today. Patient could be having headaches, nausea vomiting secondary to uncontrolled type hypertension. -- Overnight she had better BP control but later in the day BP started climbing again. Gave an additional amlodipine 5 mg -- Currently patient is on lisinopril 20 mg BID, hydrochlorothiazide, amlodipine 10 mg -- Labetalol 20 mg Q6H PRN with parameters SBP>=180 or DBP>=100, hold if HR<65, call MD --Added beta bruno in the AM01/30 --At this point she is considered resistant HTN. -- No PO meds since 01/30 PM, she is on labetalol PRN for transfer -- Pt is currently NPO. Cont NSS 100 cc/hr Concern for stroke/ subacute right occipital infarct, present on admission resolved -- MR stroke protocol as ordered by the ER, patient has had the scan prior to arriving on the floor: Negative for acute stroke -- PT/ST/OT -- Echocardiogram in the a.m. showed concern for PFO, severely dilated left atrium, moderately dilated right atrium, diastolic grade 1 dysfunction -- Neuro checks, elevate head of bed 30 -- Lipid panel is ordered, atorvastatin 10 mg daily at bedtime -- A1c 5.6, nondiabetic -- We planned for a cardiology outpatient visit/referral ziopatch/Holter monitor to monitor for atrial fibrillation Patent foramen ovale, as seen on echocardiogram -- She does have an increased risk for stroke due to suspicion for atrial fibrillation and PFO -- outpatient cardiology referral for consideration for KAYE Headache, present on admission ongoing -- Patient is improving with improved blood pressure control -- Tylenol 3 as ordered on the floor every 4 hours when necessary -- ESR is ordered and negative, she has no pain or temporal artery. Low suspicion for temporal arteritis. -- Zofran for nausea, consider Benadryl/Reglan if stroke is ruled out -- Magnesium levels ordered, noted 1.4. Repleted with 2 g IV mag at eliud time of admission -- She was given mag IV, depakote IV for symptomatic relief.on 01/30 Hypomagnesemia, resolved -- Repleted with 2 g magnesium -- Continue to monitor Hypertension chronic uncontrolled -- Current management as above -- Continue to monitor COPD chronic stable -- Patient has duplicate medications Flovent, Advair, Flonase, Nasonex -- Ordered Advair, Flonase Chronic depression stable -- NPO, hold home medication citalopram Disposition Patient is admitted under Inpatient status with expected length of stay greater than 2 midnights due to severity of presenting symptoms, risk of adverse event, and complexity of treatment plan. CODE STATUS: CPR okay, no life support or intubation Alternate decision-maker daughter Yaidra. [phone], [place] Exam Vital Signs (Last) Date Time Temp Pulse Resp B/P Pulse Ox O2 Delivery O2 Flow Rate FiO2 01/30/17 08:50 37.4 102 20 144/74 94 Room Air Exam General: Sleeping Heart: RRR, no s3/s4 Lungs CTA b/l no crackles or wheezes Abd: NT, soft Neuro: eyes are tracking, reactive to light. Pt not following commands. Very drowsy Test 01/27/17 12:40 01/28/17 05:55 01/28/17 06:45 01/29/17 11:40 Erythrocyte Sedimentation Rate 1mm/hr (0-40) Hemoglobin A1c 5.6% (4.8-5.6) Lipase 25U/L (13-60) White Blood Count 8.0th/mm3 (3.8-10.1) Red Blood Count 4.18mil/mm3 (3.90-5.20) Hemoglobin 12.7g/dL (12.0-15.6) Hematocrit 38.7% (35.0-46.0) Mean Corpuscular Volume 92.6fL (81-100) Mean Corpuscular Hemoglobin 30.4pg (27.0-35.0) Mean Corpuscular Hemoglobin Concent 32.8% (32.0-37.0) Red Cell Distribution Width 14.5% (12.3-15.4) Platelet Count 167bil/L (150-400) Neutrophils (%) (Auto) 62.4% (40-74) Lymphocytes (%) (Auto) 24.5% (14-46) Monocytes (%) (Auto) 11.8% (4-12) Eosinophils (%) (Auto) 1.0% (0-5) Basophils (%) (Auto) 0.1% (0-3) Sodium Level 137mEq/L (134-144) Potassium Level 3.7mEq/L (3.5-5.2) Chloride Level 101mEq/L (97-108) Carbon Dioxide Level 23mmol/L (18-29) Blood Urea Nitrogen 13mg/dL (8-27) Creatinine 0.47mg/dL (0.57-1.00) Estimat Glomerular Filtration Rate 183mL/min (>59) Glucose Level 118mg/dL (60-99) Calcium Level 9.1mg/dL (8.5-10.1) Total Bilirubin 2.0mg/dL (0.0-1.2) Aspartate Amino Transf (AST/SGOT) 17U/L (0-50) Alanine Aminotransferase (ALT/SGPT) 12U/L (0-32) Alkaline Phosphatase 48U/L (25-165) Total Protein 5.8g/dL (6.4-8.4) Albumin 3.7g/dL (3.4-5.0) Triglycerides Level 74mg/dL (0-149) Cholesterol Level 182mg/dL (100-199) LDL Cholesterol, Calculated 79.200mg/dL (0-99) VLDL Cholesterol 14.800mg/dL HDL Cholesterol 88mg/dL (>39) Cholesterol/HDL Ratio 2.07 (0.0-4.4) Hold Urine Received (Received) Magnesium Level 1.8mg/dL (1.6-2.6) Discharge Medications Discharge Medications Azelastine HCl (Astepro) 205.5 Mcg/0.137 Ml Wynot.pump 205.5 MCG NS BID ( Reported) Fluticasone Propionate (Flonase Allergy Relief) 50 Mcg/Actuation Wynot.susp 9.9 ML NS DAILY (Reported) Mometasone Furoate (Nasonex) 17 Gm Wynot.pump 1 SPRAY NS DAILY (Reported) As needed Albuterol Sulfate (Ventolin HFA Inhaler) 200 Puff/18 Gm Inhaler 2 PUFF INH Q4- 6H PRN PRN For Wheezing (Reported) Time spent 1 hr Attending Statement Greater than 30 minutes was spent in preparation of discharge with greater than 50% of that time dedicated to patient counseling and coordination of care. Christal Nagy DO Jan 30, 2017 11:10
[2017-01-31] MEDS: Fluticasone 0.05% 15 Spray/2 Gm 16 Gm Nasal Spray NASAL SCH (21:00)
--- NOTE | 2017-01-31 21:53 | NUR ---
TRANSFER TO [place] Telephone report given to SHYANN Long @ [facility] @ ~2039. Pt will be transferred to [address] Room 312. Family in room was notified. From initial interaction (start of shift) w/ pt to time of discharge, no changes neurologically. Pt rarely verbal, incomprehensible words at best. Pt opens eyes rarely. Pt able to move all extremities, pt has been very restless and agitated w/ assessments and VS obtainment. Pt unable to follow instructions. Air transport arrived to [facility] 3010. Pt transported w/ IVF and IV heparin gtt. Transfer orders per discharging hospitalist given to transport team. Pts rode in helicopter. Pts daughter took all remaining pt belongings from room. Pt left [facility] approx 2140.
--- NOTE | 2017-02-01 00:15 | CONS ---
[address] [address] CONSULTATION REPORT PATIENT: ALEKSANDER GIORDANO : 1935 MR#: [id number] ADMIT: 01/27/2017 JOB ID: [id number] DATE OF SERVICE: 01/31/2017 The patient was seen by me at 10 a.m. this morning. CHIEF COMPLAINT: Change in mental status. HISTORY OF PRESENTING ILLNESS: The patient is a pleasant 81-year-old woman with multiple medical problems who presented to the emergency department following new onset of a headache approximately one week ago, described as being localized to the frontal head region and alternating between the left frontotemporal head region and the right frontotemporal head region. The headache has been gradually progressive. She did have a CT of the head performed which demonstrated questionable focal decreased laguerre white differentiation in the right occipital lobe and the thought was that this perhaps could be secondary to a stroke. Mild findings of microvascular ischemic changes. A magnetic resonance imaging study of the brain stroke protocol was performed. I reviewed this in detail with radiologist, Dr. Piotr Mayo. This demonstrated normal findings. A repeat CT of the head was performed demonstrating no acute intracranial abnormalities, persistent dependent fluid within the left sphenoid sinus suggestive of sinusitis. Clinically, the patient and family do not report symptoms of sinusitis. The patient was seen at the bedside with family members. History was obtained from the chart, as well as the attending physician and the family members, as well as the patient. ALLERGIES: 1. CATS. 2. DUST MITES. HOME MEDICATIONS: Include: 1. Aspirin. 2. Azelastine. 3. Citalopram. 4. Flonase. 5. Advair. 6. Hydrochlorothiazide. 7. Latanoprost. 8. Lisinopril. 9. Nasonex. 10. Labetalol. 11. Occasionally albuterol and prednisone as needed. PAST MEDICAL HISTORY: 1. Hypertension. 2. Glaucoma. 3. Chronic obstructive pulmonary disease. 4. Peripheral neuropathy. 5. Chronic back pain. 6. History of sciatica and osteoporosis. PAST SURGICAL HISTORY: 1. Status post right knee replacement. 2. Status post tonsillectomy. 3. Status post gallbladder surgery. 4. Status post partial hysterectomy. FAMILY HISTORY: No neurological disorders. SOCIAL HISTORY: She does drink alcohol but socially. Former smoker, no smoking now. Lives with family members and her . REVIEW OF SYSTEMS: There has been a mental status exchange teller the past 24 hours. She was noted to have an episode yesterday at approximately 5 p.m. in the evening where she was ambulating the hallways and was about to be discharged home when she was noted by the nurse, who I spoke to (Liz Lemus) to have sudden change in mental status with word salad and expressive and perhaps questionable receptive aphasia. A stroke code was called and [place] was contacted. The decision was made that she was not a tPA candidate, however, the recommendation was to obtain a magnetic resonance imaging study of her brain. However, since then she has become more and more agitated and during the night required sedation with Haldol and Ativan. Today, when examined at the bedside, she was lying supine and covering her eyes with her hands, and when asked to participate in the neurologic examination she became agitated and refused to participate. This is a significant change from her baseline. In light of this, decision was made to obtain a computed tomography angiogram/venogram. A complete review of systems could not be performed as the patient was agitated and was not following commands or answering questions. PHYSICAL EXAMINATION: Temperature 36.8, pulse of 103, respiratory rate of 20, blood pressure 173/83. As noted above, the patient is lying in the hospital bed supine with hands over her face and declined participation in neurologic examination: Mental status could not be assessed as noted above. Cranial nerves: Pupils did appear equal, round and reactive to light. Funduscopic examination was attempted, however, the patient did not cooperate with this, and because of this, this examination could not be completed. Face appeared symmetrical. Facial sensation appeared to be intact bilaterally. Blink to threat was present. Face appeared symmetrical. Tongue was midline. Negative Kernig's, negative Brudzinski. Neck is supple. No carotid bruits were auscultated bilaterally. Motor: Moving all four limbs spontaneously. Sensory: She withdraws to noxious stimuli throughout. Deep tendon reflexes diminished throughout. Coordination could not be assessed. Gait could not be assessed. IMPRESSION: New onset of headache in a previously healthy patient does include a wide differential, however, in this case, there has been significant mental status changes over the past 24 hours. In addition to this, there has been persistently elevated blood pressures up to the systolic 200s and diastolic 100s in a patient that prior to this had well controlled blood pressure based on the history obtained from the family members. I am strongly suspecting an underlying intracranial process in this case, my suspicion is either a venous sinus thrombosis or cerebral vasospasm. RECOMMENDATIONS: CT angiogram/venogram. If this is abnormal, I would recommend strongly that this patient be transferred to a center where there is a neurosurgeon on site if she does need immediate neurosurgical intervention, and I also recommend close monitoring in a neuro intensive care unit. Thank you again, Dr. Nagy, for allowing me to participate in the care of your patient. Please feel free to contact me with any questions or concerns.
== END 2017-01-31 21:23 | disposition short-term general hospital (02) | DRG 299 ==
LOC: SED 11:59 → MPC 17:15 → OBSVTOIN 17:15 → MPC 17:30
PROVIDERS: ADMIT Family Medicine; ATTEND Family Medicine
DX: I82.C11 Acute embolism and thrombosis of right internal jugular vein (principal); G08 Intracranial and intraspinal phlebitis and thrombophlebitis; I16.0 Hypertensive urgency; J44.9 Chronic obstructive pulmonary disease, unspecified; R29.810 Facial weakness; E83.42 Hypomagnesemia; F32.9 Major depressive disorder, single episode, unspecified; M54.30 Sciatica, unspecified side; I95.9 Hypotension, unspecified; G62.9 Polyneuropathy, unspecified; Z87.891 Personal history of nicotine dependence; Z79.51 Long term (current) use of inhaled steroids